=== PATIENT | male | born 1945 | race Caucasian/White ===

== ENCOUNTER 2017-08-05 17:29 | Observation (INO) | payer MEDICARE, OTHER ==
[~2017-08-05] VITALS: Ht 177.8 cm; Wt 92.9 kg
[2017-08-05 17:32] VITALS: BP 168/88; PULSE 50; RESP 14; TEMP 98.6; O2SAT 98
[2017-08-05 18:00] VITALS: BP 194/92; PULSE 50; RESP 18; O2SAT 96
[2017-08-05 18:08] VITALS: O2SAT 97
[2017-08-05] MEDS ORDERED: ATEN25TA PO (18:11)
[2017-08-05] MEDS ORDERED: FOLI400T PO (18:12)
[2017-08-05] MEDS ORDERED: MECL-62 PO (18:12)
[2017-08-05] MEDS ORDERED: VITA100T54 PO (18:12)
[2017-08-05] MEDS ORDERED: PRAV40TA2 PO (18:12)
[2017-08-05] MEDS ORDERED: SODIUM CHLORIDE 0.9% FLUSH 10 ML FLUSH IVF PRN (18:15)
--- NOTE | 2017-08-05 18:26 | RADRPT ---
EXAM DATE/TIME: 08/05/2017 18:07 [facility] COMPARISON: No previous studies available for comparison. INDICATIONS : Short of breath MEDICAL HISTORY : Cardiovascular disease. SURGICAL HISTORY : None. ENCOUNTER: Initial ACUITY: 1 day PAIN SCORE: 0/10 LOCATION: chest FINDINGS: A single view of the chest demonstrates linear atelectasis or scarring in the left base. Nodular dens ity laterally in the right base may represent a nipple shadow. Lungs are otherwise clear. Heart size is upper limits of normal. Dextroscoliosis of the dorsal spine with associated degenerative changes. Age-indeterminate displaced fracture through the lateral aspect of a lower left rib. CONCLUSION: 1. Linear atelectasis/scarring in the left lower lobe. 2. Age-indeterminate fracture through the lateral aspect of a left lower rib. 3. Nodular density laterally in the right base is nonspecific and may represent a nipple shadow. Antonino Turner MD on August 05, 2017 at 18:20 Board Certified Radiologist. This report was verified electronically.
--- NOTE | 2017-08-05 18:52 | PD ---
HPI Chief Complaint: Neuro Symptoms/ Deficits Time Seen by Provider: 17:58 Travel History International Travel<30 days: No Contact w/Intl Traveler<30days: No Traveled to known affect area: No History of Present Illness HPI 72-year-old male came to the emergency room with history of left upper extremity tingling and numbness. Patient drove himself in. He says that at 3: 30 [place] his neck and all of a sudden got a sharp pain followed by tingling and numbness of his left upper extremity. 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 However the tingling and numbness is new. Patient says he is from [place] and moved down here to live here. He does not have a primary care physician. His blood pressure was elevated and 190s when he arrived. Patient denies of any headache or chest pain. No history of syncopal episode. [facility] Past Medical History Narrative Medical List of his past medical, surgical, social and family history is reviewed from the nursing note. Cardiovascular Problems: Yes (HTN) High Cholesterol: Yes Diminished Hearing: No Hypertension: Yes Medical other: Yes (polio) Influenza Vaccination: Yes Past Surgical History Oral Surgery: Yes (wisdom teeth extraction) Tonsillectomy: Yes Family History Family Myocardial Infarction: Yes (father) Social History Alcohol Use: No Tobacco Use: No Substance Use: No Allergies-Medications (Allergen,Severity, Reaction): Coded Allergies: No Known Allergies (Unverified , 08/05/17) Comments No known drug allergies. Reported Meds & Prescriptions Reported Meds & Active Scripts Active Reported Vitamin B-1 (Thiamine HCl) 100 Mg Tab 100 Mg PO DAILY Folic Acid 0.4 Mg Tab 400 Mcg PO DAILY Pravastatin 40 Mg Tab 40 Mg PO DAILY Meclizine (Meclizine HCl) 25 Mg Tab 25 Mg PO DIRECTED PRN Narrative Medication List of his home medications reviewed from the nursing note. Review of Systems Except as stated in HPI: all other systems reviewed are Neg Neurologic: Positive: Paresthesia Physical Exam Narrative GENERAL: Awake, alert, anxious SKIN: Focused skin assessment warm/dry. HEAD: Atraumatic. Normocephalic. EYES: Pupils equal and round. No scleral icterus. No injection or drainage. ENT: No nasal bleeding or discharge. Mucous membranes pink and moist. NECK: Trachea midline. No JVD. CARDIOVASCULAR: Regular rate and rhythm. No murmur appreciated. RESPIRATORY: No accessory muscle use. Clear to auscultation. Breath sounds equal bilaterally. GASTROINTESTINAL: Abdomen soft, non-tender, nondistended. Hepatic and splenic margins not palpable. MUSCULOSKELETAL: No obvious deformities. No clubbing. No cyanosis. No edema. NEUROLOGICAL: Awake and alert. No obvious cranial nerve deficits. Motor grossly within normal limits. Normal speech. NIH stroke score 0 PSYCHIATRIC: Appropriate mood and affect; insight and judgment normal. Data Data Last Documented VS Orders Orders Electrocardiogram (08/05/17 18:05) Prothrombin Time / Inr (Pt) (08/05/17 18:05) Complete Blood Count With Diff (08/05/17 18:) Basic Metabolic Panel (Bmp) (08/05/17 18:05) Creatine Kinase (Cpk) (08/05/17 18:05) Troponin I (08/05/17 18:05) Urinalysis - C+S If Indicated (08/05/17 18:05) Ct Brain W/O Iv Contrast(Rout) (08/05/17 18:05) Chest, Single Ap (08/05/17 18:05) Ecg Monitoring (08/05/17 18:05) Iv Access Insert/Monitor (08/05/17 18:05) Oximetry (08/05/17 18:05) Sodium Chloride 0.9% Flush (Ns Flush) (08/05/17 18:15) Aspirin (Aspirin) (08/05/17 20:15) [place] (08/05/17 20:03) Sodium Chlor 0.9% 1000 Ml Inj (Ns 1000 M (08/05/17 20:15) Admit Order (Ed Use Only) (08/05/17 21:19) Place In Observation (08/05/17 ) Vital Signs (Adult) EBONIE.Q4H (08/05/17 21:18) Neuro Checks . ORDERED (08/05/17 21:18) Activity Oob With Assistance (08/05/17 21:18) Sodium Chloride 0.9% Flush (Ns Flush) (08/05/17 21:30) Sodium Chloride 0.9% Flush (Ns Flush) (08/06/17 09:00) Labs Laboratory Tests Test 08/05/17 18:08 08/05/17 18:45 White Blood Count 6.3 TH/MM3 Red Blood Count 5.17 MIL/MM3 Hemoglobin 15.8 GM/DL Hematocrit 46.8 % Mean Corpuscular Volume 90.6 FL Mean Corpuscular Hemoglobin 30.6 PG Mean Corpuscular Hemoglobin Concent 33.8 % Red Cell Distribution Width 13.5 % Platelet Count 182 TH/MM3 Mean Platelet Volume 10.2 FL Neutrophils (%) (Auto) 60.3 % Lymphocytes (%) (Auto) 26.3 % Monocytes (%) (Auto) 9.0 % Eosinophils (%) (Auto) 3.6 % Basophils (%) (Auto) 0.8 % Neutrophils # (Auto) 3.8 TH/MM3 Lymphocytes # (Auto) 1.7 TH/MM3 Monocytes # (Auto) 0.6 TH/MM3 Eosinophils # (Auto) 0.2 TH/MM3 Basophils # (Auto) 0.1 TH/MM3 CBC Comment DIFF FINAL Differential Comment Prothrombin Time 10.6 SEC Prothromb Time International Ratio 1.0 RATIO Blood Urea Nitrogen 11 MG/DL Creatinine 0.79 MG/DL Random Glucose 105 MG/DL Calcium Level 9.8 MG/DL Sodium Level 140 MEQ/L Potassium Level 3.6 MEQ/L Chloride Level 104 MEQ/L Carbon Dioxide Level 26.8 MEQ/L Anion Gap 9 MEQ/L Estimat Glomerular Filtration Rate 97 ML/MIN Total Creatine Kinase 115 U/L Troponin I 0.05 NG/ML Urine Color YELLOW Urine Turbidity CLEAR Urine pH 5.5 Urine Specific [place] 1.031 Urine Protein TRACE mg/dL Urine Glucose (UA) NEG mg/dL Urine Ketones NEG mg/dL Urine Occult Blood NEG Urine Nitrite NEG Urine Bilirubin NEG Urine Urobilinogen LESS THAN 2.0 MG/DL Urine Leukocyte Esterase TRACE Urine RBC LESS THAN 1 /hpf Urine WBC 1 /hpf Urine Calcium Oxalate Crystals OCC /hpf Urine Mucus FEW /lpf Microscopic Urinalysis Comment CATH-CULT NOT IND MDM Medical Decision Making Medical Screen Exam Complete: Yes Emergency Medical Condition: Yes Medical Record Reviewed: Yes Interpretation(s) Twelve-lead EKG was reviewed by me. Normal sinus rhythm, left axis deviation, bradycardia, old inferior NM, first-degree AV block, nonspecific ST-T wave changes.. Heart rate of 46 bpm. Differential Diagnosis TIA, cervical spinal stenosis, bradycardia Narrative Course 6:51 PM awaiting for the CAT scan and the blood test result. Case will be signed over to the oncoming ER physician. Procedures EKG Prior to Arrival: No Scripts Amlodipine (Norvasc) 5 Mg Tab 5 MG PO DAILY, #30 TAB Prov: Henna Abraham MD R2 08/09/17 Metoprolol Tartrate (Metoprolol Tartrate) 25 Mg Tab 25 MG PO Q12HR, #60 TAB Prov: Henna Abraham MD R2 08/09/17 Sam Castorena MD Aug 05, 2017 18:52
[2017-08-05 19:02] VITALS: BP 142/78; PULSE 45; RESP 18; O2SAT 95
--- NOTE | 2017-08-05 19:07 | RADRPT ---
EXAM DATE/TIME: 08/05/2017 18:42 [facility] COMPARISON: No previous studies available for comparison. INDICATIONS : Syncope with left sided arm, facial and leg numbness. RADIATION DOSE: 56.35 CTDIvol (mGy) MEDICAL HISTORY : Hypertension. SURGICAL HISTORY : None. ENCOUNTER: Initial ACUITY: 1 day PAIN SCALE: 5/10 LOCATION: Bilateral head TECHNIQUE: Multiple contiguous axial images were obtained of the head. Using automated exposure control and adj ustment of the mA and/or kV according to patient size, radiation dose was kept as low as reasonably a chievable to obtain optimal diagnostic quality images. DICOM format image data is available electro nically for review and comparison. FINDINGS: CEREBRUM: The ventricles are normal. No evidence of midline shift, mass lesion, hemorrhage or acute infarction . No extra-axial fluid collections are seen. POSTERIOR FOSSA: The cerebellum and brainstem are intact. The 4th ventricle is midline. The cerebellopontine angle i s unremarkable. EXTRACRANIAL: The visualized portion of the orbits is intact. SKULL: The calvaria is intact. No evidence of skull fracture. CONCLUSION: No acute intracranial abnormality is identified. Carroll Iverson MD on August 05, 2017 at 19:03 Board Certified Radiologist. This report was verified electronically.
[2017-08-05 19:10] LABS: AUTOMATED NEUTROPHIL # 3.8 TH/MM3 (1.8-7.7); BASOPHIL # 0.1 TH/MM3 (0-0.2); BASOPHIL % 0.8 % (0.0-2.0); EOSINOPHIL # 0.2 TH/MM3 (0-0.4); EOSINOPHIL % 3.6 % (0.0-4.0); HEMATOCRIT 46.8 % (39.0-51.0); HEMO FLAGS DIFF FINAL; LYMPH % 26.3 % (9.0-44.0); LYMPHOCYTE # 1.7 TH/MM3 (1.0-4.8); MEAN CELL VOLUME 90.6 FL (80.0-100.0); MEAN CORPUSCULAR HEMOGLOBIN 30.6 PG (27.0-34.0); MEAN CORPUSCULAR HGB CONC 33.8 % (32.0-36.0); NEUT % 60.3 % (16.0-70.0); PLATELET COUNT 182 TH/MM3 (150-450); RED BLOOD COUNT 5.17 MIL/MM3 (4.50-5.90); RED CELL DISTRIBUTION WIDTH 13.5 % (11.6-17.2); WHITE BLOOD COUNT 6.3 TH/MM3 (4.0-11.0)
[2017-08-05 19:10] LABS: BLOOD, URINE NEG (NEG); CALCIUM OXALATE CRYSTALS,URINE OCC /hpf; COMMENT (UR) CATH-CULT NOT IND; CULTURE IF INDICATED CATH CULTURE NOT IND; GLUCOSE,URINE NEG (NEG); KETONE, URINE NEG (NEG); MUCUS URINE FEW /lpf (OCC); NITRITE,URINE NEG (NEG); PH, URINE 5.5 (5.0-8.5); URINE COLOR YELLOW (YELLW/STRAW)
[2017-08-05 19:15] LABS: PROTHROMBIN TIME - PATIENT 10.6 SEC (9.8-11.6)
[2017-08-05 19:18] LABS: BICARBONATE 26.8 MEQ/L (21.0-32.0); POTASSIUM 3.6 MEQ/L (3.5-5.1)
--- NOTE | 2017-08-05 19:55 | PD ---
Data Data Last Documented VS Vital Signs Date Time Temp Pulse Resp B/P (MAP) Pulse Ox O2 Delivery O2 Flow Rate FiO2 08/05/17 20:27 45 18 160/79 (106) 96 Room Air 08/05/17 17:32 98.6 Orders Orders Electrocardiogram (08/05/17 18:05) Prothrombin Time / Inr (Pt) (08/05/17 18:05) Complete Blood Count With Diff (08/05/17 18:05) Basic Metabolic Panel (Bmp) (08/05/17 18:05) Creatine Kinase (Cpk) (08/05/17 18:05) Troponin I (08/05/17 18:05) Urinalysis - C+S If Indicated (08/05/17 18:05) Ct Brain W/O Iv Contrast(Rout) (08/05/17 18:05) Chest, Single Ap (08/05/17 18:05) Ecg Monitoring (08/05/17 18:05) Iv Access Insert/Monitor (08/05/17 18:05) Oximetry (08/05/17 18:05) Sodium Chloride 0.9% Flush (Ns Flush) (08/05/17 18:15) Aspirin (Aspirin) (08/05/17 20:15) [place] (08/05/17 20:03) Sodium Chlor 0.9% 1000 Ml Inj (Ns 1000 M (08/05/17 20:15) Admit Order (Ed Use Only) (08/05/17 21:19) Place In Observation (08/05/17 ) Vital Signs (Adult) EBONIE.Q4H (08/05/17 21:18) Neuro Checks . ORDERED (08/05/17 21:18) Activity Oob With Assistance (08/05/17 21:18) Sodium Chloride 0.9% Flush (Ns Flush) (08/05/17 21:30) Sodium Chloride 0.9% Flush (Ns Flush) (08/06/17 09:00) Labs Laboratory Tests Test 08/05/17 18:08 08/05/17 18:45 White Blood Count 6.3 TH/MM3 Red Blood Count 5.17 MIL/MM3 Hemoglobin 15.8 GM/DL Hematocrit 46.8 % Mean Corpuscular Volume 90.6 FL Mean Corpuscular Hemoglobin 30.6 PG Mean Corpuscular Hemoglobin Concent 33.8 % Red Cell Distribution Width 13.5 % Platelet Count 182 TH/MM3 Mean Platelet Volume 10.2 FL Neutrophils (%) (Auto) 60.3 % Lymphocytes (%) (Auto) 26.3 % Monocytes (%) (Auto) 9.0 % Eosinophils (%) (Auto) 3.6 % Basophils (%) (Auto) 0.8 % Neutrophils # (Auto) 3.8 TH/MM3 Lymphocytes # (Auto) 1.7 TH/MM3 Monocytes # (Auto) 0.6 TH/MM3 Eosinophils # (Auto) 0.2 TH/MM3 Basophils # (Auto) 0.1 TH/MM3 CBC Comment DIFF FINAL Differential Comment Prothrombin Time 10.6 SEC Prothromb Time International Ratio 1.0 RATIO Blood Urea Nitrogen 11 MG/DL Creatinine 0.79 MG/DL Random Glucose 105 MG/DL Calcium Level 9.8 MG/DL Sodium Level 140 MEQ/L Potassium Level 3.6 MEQ/L Chloride Level 104 MEQ/L Carbon Dioxide Level 26.8 MEQ/L Anion Gap 9 MEQ/L Estimat Glomerular Filtration Rate 97 ML/MIN Total Creatine Kinase 115 U/L Troponin I 0.05 NG/ML Urine Color YELLOW Urine Turbidity CLEAR Urine pH 5.5 Urine Specific [place] 1.031 Urine Protein TRACE mg/dL Urine Glucose (UA) NEG mg/dL Urine Ketones NEG mg/dL Urine Occult Blood NEG Urine Nitrite NEG Urine Bilirubin NEG Urine Urobilinogen LESS THAN 2.0 MG/DL Urine Leukocyte Esterase TRACE Urine RBC LESS THAN 1 /hpf Urine WBC 1 /hpf Urine Calcium Oxalate Crystals OCC /hpf Urine Mucus FEW /lpf Microscopic Urinalysis Comment CATH-CULT NOT IND MDM Medical Record Reviewed: Yes Supervised Visit with ADRIANNE: No Interpretation(s) Last Impressions Head CT 08/05/[id number] Signed Impressions: Service Date/Time: Saturday, August 05, 2017 18:42 - CONCLUSION: No acute intracranial abnormality is identified. Carroll Iverson MD Chest X-Ray [id number]/05/[id number] Signed Impressions: Service Date/Time: Saturday, August 05, 2017 18:07 - CONCLUSION: 1. Linear atelectasis/scarring in the left lower lobe. 2. Age-indeterminate fracture through the lateral aspect of a left lower rib. 3. Nodular density laterally in the right base is nonspecific and may represent a nipple shadow. Antonino Turner MD Narrative Course During the course of the patients emergency department visit, the patients history, examination, and differential diagnosis were reviewed with the patient. The patient was placed on a potline monitor with oximetry and frequent blood pressure monitoring. The patient had IV access obtained and blood work sent for analysis. The patient's case was checked out to me by Dr. Castorena. Please see her initial complete history and physical. The patient's case was checked out to me at the conclusion of her shift. The patients laboratory studies were reviewed and remarkable for a white count of 6.3, hemoglobin 15.8, platelets 182 with 9 monocytes, basic metabolic profile is unremarkable, CPK 1:15, troponin I 0.05, PT 10.6, INR 1. urinalysis shows trace leukocyte Estrace 1 WBCs occasional calcium oxalate crystals, culture not indicated per Radiology studies were reviewed and remarkable for a chest x-ray that shows linear atelectasis/scarring in the left lower lobe, age indeterminate fracture through the lateral aspect of the left lower rib. Nodular density laterally in the right base is nonspecific and may represent a nipple shadow. CT scan of the brain shows no acute intracranial abnormality. The patients results were discussed with the patient, including the plan of care. I explained that further testing and/ or monitoring is indicated based on the patients history, examination, and/ or laboratory findings. Therefore, I recommended admission for additional evaluation. The patient expressed understanding and was agreeable with this plan. The patient was admitted to the hospital in stable condition and sent to a bed under the care of the [facility] residency service. Physician Communication Physician Communication The patient's case including history, pertinent physical examination findings, and laboratory studies were discussed with the family practice residents. It was agreed that the patient would be admitted to the [facility] residency service. Diagnosis Primary Impression: Multiple neurological symptoms Admitting Information Admitting Physician Requests: Observation Stephany Shepard MD Aug 05, 2017 19:55
[2017-08-05] MEDS ORDERED: ASPIRIN 325 MG TAB PO ONE (20:15)
[2017-08-05] MEDS: SODIUM CHLOR 0.9% 1000 ML INJ 1,000 ML IV SCH (20:26)
[2017-08-05 20:27] VITALS: BP 160/79; PULSE 45; RESP 18; O2SAT 96
[2017-08-05] MEDS ORDERED: SODIUM CHLORIDE 0.9% FLUSH 10 ML FLUSH IV FLUSH PRN (21:30)
--- NOTE | 2017-08-05 21:52 | HHI.HP ---
HPI Service Family Medicine Primary Care Physician Unknown Admission Diagnosis Neurologic symptoms Diagnoses: International Travel<30 Days: No Contact w/Intl Traveler<30days: No Known Affected Area: No History of Present Illness Mr. Jeter is a 72yo WM with a PMH of post-polio syndrome presenting to the ED with transient left-sided numbness. He states that he arrived in [place] today after driving from [place] 2 days ago with a stop in [place], for his mother's on yesterday. He subsequently drove to the [place] and sat in his car. He turned his head sharply and felt an immediate pain in his neck. He described the pain as a 5 out of 10, feeling like a "pinched nerve" in the left side of his neck with no radiation, nothing made it worse, felt better with time. He said after the pain in his neck started his whole left side went numb. Eventually the feeling came back in his left leg, but he still feels sore in his left arm with some residual weakness that is greater than his baseline weakness. He remembers feeling tired during this episode which lasted for 45 minutes[address] He [address] to the hospital once it was over. He has a history of polio when he was younger. It affected his muscles in his left arm and right leg which causes weakness. He was diagnosed with post polio syndrome 2 years ago. He states that he feels numbness sometimes, but not always. No tingling. States that he has never experienced anything like this before. Review of Systems Constitutional: COMPLAINS OF: Dizziness, DENIES: Diaphoretic episodes, Fever, Chills Eyes: DENIES: Blurred vision, Double Vision Ears, nose, mouth, throat: COMPLAINS OF: Running Nose, DENIES: Tinnitus, Hearing loss, Vertigo Respiratory: COMPLAINS OF: Shortness of breath, DENIES: Cough Cardiovascular: DENIES: Chest pain, Palpitations, Syncope, Lower Extremity Edema Gastrointestinal: DENIES: Abdominal pain, Black stools, Bloody stools, Constipation, Diarrhea, Nausea, Vomiting Genitourinary: DENIES: Urinary frequency, Urinary incontinence Musculoskeletal: COMPLAINS OF: Stiffness, Back pain (sore), Neck pain Integumentary: DENIES: Rash Neurologic: DENIES: Headache, Paresthesias, Seizures, Tremor Psychiatric: COMPLAINS OF: Anxiety (because of the episode) Past Family Social History Past Medical History Polio and post polio syndrome Vertigo in November HTN HLD Past Surgical History tonsillectomy upper teeth extraction Reported Medications Reported Meds & Active Scripts Active Reported Vitamin B-1 (Thiamine HCl) 100 Mg Tab 100 Mg PO DAILY Folic Acid 0.4 Mg Tab 400 Mcg PO DAILY Pravastatin 40 Mg Tab 40 Mg PO DAILY Meclizine (Meclizine HCl) 25 Mg Tab 25 Mg PO DIRECTED PRN Atenolol 25 Mg Tab 25 Mg PO DAILY Allergies: Coded Allergies: No Known Allergies (Unverified , 08/05/17) Family History Father- prostate ca Mother- healthy, recently passed at 96 Social History Lives in [place], here 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 Love Alcohol- 2x/week- beer or wine, never withdrawn Cigarettes- quit 10 yrs, 1/2 pack a week for 20 yrs Illicit drugs- none Physical Exam Vital Signs Vital Signs Date Time Temp Pulse Resp B/P (MAP) Pulse Ox O2 Delivery O2 Flow Rate FiO2 08/05/17 20:27 45 18 160/79 (106) 96 Room Air 08/05/17 19:02 45 18 142/78 (99) 95 Room Air 08/05/17 18:08 97 08/05/17 18:00 50 18 194/92 (126) 96 Room Air 08/05/17 17:32 98.6 50 14 168/88 (114) 98 Physical Exam GENERAL: This is a well-nourished, well-developed patient, laying in bed, in no apparent distress. Upper lip fasciculations SKIN: No rashes, ecchymoses or lesions. Cool and dry. HEAD: Atraumatic. Normocephalic. EYES: Pupils equal round and reactive. Extraocular motions intact. No scleral icterus. No injection or drainage. ENT: Nose without bleeding, purulent drainage or septal hematoma. Throat without erythema, tonsillar hypertrophy or exudate. Uvula midline. Airway patent. NECK: Trachea midline. No JVD or lymphadenopathy. Supple, nontender, no meningeal signs. CARDIOVASCULAR: Regular rate and rhythm without murmurs, gallops, or rubs. RESPIRATORY: Clear to auscultation. Breath sounds equal bilaterally. No wheezes , rales, or rhonchi. GASTROINTESTINAL: Abdomen soft, epigastric and LUQ tenderness, nondistended. No hepato-splenomegaly, or palpable masses. No guarding. MUSCULOSKELETAL: Extremities without clubbing, cyanosis, or edema. No joint tenderness, effusion, or edema noted. No calf tenderness. Negative Homans sign bilaterally. Right leg externally rotated. Limited ROM of left arm. NEUROLOGICAL: Awake and alert. Cranial nerves II through XII intact. Motor and sensory grossly within normal limits. Five out of 5 muscle strength in RU and LL extremities. Strength 3/5 in left upper extremity and 1/5 in right lower extremity; however, able to dorsi and plantar flex foot with 5/5 strength in right leg. Random twitches of right foot. Normal speech. Laboratory Laboratory Tests Test 08/05/17 18:08 08/05/17 18:45 White Blood Count 6.3 Red Blood Count 5.17 Hemoglobin 15.8 Hematocrit 46.8 Mean Corpuscular Volume 90.6 Mean Corpuscular Hemoglobin 30.6 Mean Corpuscular Hemoglobin Concent 33.8 Red Cell Distribution Width 13.5 Platelet Count 182 Mean Platelet Volume 10.2 Neutrophils (%) (Auto) 60.3 Lymphocytes (%) (Auto) 26.3 Monocytes (%) (Auto) 9.0 Eosinophils (%) (Auto) 3.6 Basophils (%) (Auto) 0.8 Neutrophils # (Auto) 3.8 Lymphocytes # (Auto) 1.7 Monocytes # (Auto) 0.6 Eosinophils # (Auto) 0.2 Basophils # (Auto) 0.1 CBC Comment DIFF FINAL Differential Comment Prothrombin Time 10.6 Prothromb Time International Ratio 1.0 Blood Urea Nitrogen 11 Creatinine 0.79 Random Glucose 105 Calcium Level 9.8 Sodium Level 140 Potassium Level 3.6 Chloride Level 104 Carbon Dioxide Level 26.8 Anion Gap 9 Estimat Glomerular Filtration Rate 97 Total Creatine Kinase 115 Troponin I 0.05 Urine Color YELLOW Urine Turbidity CLEAR Urine pH 5.5 Urine Specific [place] 1.031 Urine Protein TRACE Urine Glucose (UA) NEG Urine Ketones NEG Urine Occult Blood NEG Urine Nitrite NEG Urine Bilirubin NEG Urine Urobilinogen LESS THAN 2.0 Urine Leukocyte Esterase TRACE Urine RBC LESS THAN 1 Urine WBC 1 Urine Calcium Oxalate Crystals OCC Urine Mucus FEW Microscopic Urinalysis Comment CATH-CULT NOT IND Result Diagram: 08/05/17180708/05/171807 Imaging Last Impressions Head CT 08/05/171804 Signed Impressions: Service Date/Time: Saturday, August 05, 2017 18:42 - CONCLUSION: No acute intracranial abnormality is identified. Carroll Iverson MD Chest X-Ray 08/05/171804 Signed Impressions: Service Date/Time: Saturday, August 05, 2017 18:07 - CONCLUSION: 1. Linear atelectasis/scarring in the left lower lobe. 2. Age-indeterminate fracture through the lateral aspect of a left lower rib. 3. Nodular density laterally in the right base is nonspecific and may represent a nipple shadow. MD Jai Alva VTE Risk Assessment Caprini VTE Risk Assessment: Mod/High Risk (score >= 2) Caprini Risk Assessment Model Point Value = 1 Point Value = 2 Point Value = 3 Point Value = 5 Age 41-60 Minor surgery BMI > 25 kg/m2 Swollen legs Varicose veins or History of unexplained or recurrent spontaneous Oral contraceptives or hormone replacement Sepsis (< 1 month) Serious lung disease, including pneumonia (< 1 month) Abnormal pulmonary function Acute myocardial infarction Congestive heart failure (< 1 month) History of inflammatory bowel disease Medical patient at bed rest Age 61-74 Arthroscopic surgery Major open surgery (> 45 min) Laparoscopic surgery (> 45 min) Malignancy Confined to bed (> 72 hours) Immobilizing plaster cast Central venous access Age >= 75 History of VTE Family history of VTE Factor V Leiden Prothrombin [id number] Lupus anticoagulant Anticardiolipin antibodies Elevated serum homocysteine Heparin-induced thrombocytopenia Other congenital or acquired thrombophilia Stroke (< 1 month) Elective arthroplasty Hip, pelvis, or leg fracture Acute spinal cord injury (< 1 month) Prophylaxis Regimen Total Risk Factor Score Risk Level Prophylaxis Regimen 0-1 Low Early ambulation 2 Moderate Order ONE of the following: *Sequential Compression Device (SCD) *Heparin 5000 units SQ BID 3-4 Higher Order ONE of the following medications: *Heparin 5000 units SQ TID *Enoxaparin/Lovenox 40 mg SQ daily (WT < 150 kg, CrCl > 30 mL/min) *Enoxaparin/Lovenox 30 mg SQ daily (WT < 150 kg, CrCl > 10-29 mL/min) *Enoxaparin/Lovenox 30 mg SQ BID (WT < 150 kg, CrCl > 30 mL/min) AND/OR *Sequential Compression Device (SCD) 5 or more Highest Order ONE of the following medications: *Heparin 5000 units SQ TID (Preferred with Epidurals) *Enoxaparin/Lovenox 40 mg SQ daily (WT < 150 kg, CrCl > 30 mL/min) *Enoxaparin/Lovenox 30 mg SQ daily (WT < 150 kg, CrCl > 10-29 mL/min) *Enoxaparin/Lovenox 30 mg SQ BID (WT < 150 kg, CrCl > 30 mL/min) AND *Sequential Compression Device (SCD) Assessment and Plan Assessment and Plan Mr. Jeter is a 72yo WM with a PMH of post-polio syndrome presenting to the ED with transient left-sided numbness and residual left arm weakness. He is being admitted to observation. Code Status Full code Discussed Condition With Dr. Jeff Caro Problem List: (1) Left arm weakness ICD Codes: R29.898 - Other symptoms and signs involving the musculoskeletal system Status: Acute Plan: Pt states that his left arm weakness is greater than baseline. Since the sx originated from neck pain likely due to a cervical origin. Cervical stenosis vs worsening post-polio syndrome vs TIA * ASA 325 mg given in ED * Head CT w/o showed no acute intracranial abnormality * Brain MRI w/o contrast ordered * Cervical MRI w/o contrast ordered * Neuro checks * HOB flat (2) Post-polio syndrome ICD Codes: G14 - Postpolio syndrome Status: Chronic Plan: Has chronic weakness in left arm and right leg. (3) Hypertension ICD Codes: I10 - Essential (primary) hypertension Status: Chronic Plan: * HELD at home medication of Atenolol 25mg po qD to allow for permissive HTN (4) Hyperlipemia ICD Codes: E78.5 - Hyperlipidemia, unspecified Status: Chronic Plan: * Continue at home medication of Pravastatin 40mg po qD (5) FEN Status: Acute Plan: Fluids: tolerating PO Electrolytes: monitor and replete as needed Nutrition: heart-healthy diet DVT Prophylaxis: Early ambulation. Lovenox 40mg subQ q24hr GI Prophylaxis: not indicated at this time Problem Qualifiers (1) Hypertension: Qualified Codes: I10 - Essential (primary) hypertension Leslie Choi MD R1 Aug 05, 2017 21:52
[2017-08-05] MEDS ORDERED: ONDANSETRON HCL 4 MG/2 ML VIAL IVP PRN (22:45)
[2017-08-05] MEDS ORDERED: ACETAMINOPHEN/HYDROcodone 325 MG/7.5 MG TAB PO PRN (22:45)
[2017-08-05] MEDS ORDERED: MORPHINE SULFATE 4 MG/ML INJ IV PUSH PRN (22:45)
[2017-08-05] MEDS ORDERED: ACETAMINOPHEN 325 MG TAB PO PRN (22:45)
[2017-08-05] MEDS ORDERED: BISACODYL 10 MG SUPP RECTAL PRN (22:45)
[2017-08-05] MEDS ORDERED: SENNOSIDES 8.6 MG TAB PO PRN (22:45)
[2017-08-05] MEDS ORDERED: MECLIZINE HCL 25 MG TAB PO PRN (22:45)
[2017-08-05] MEDS ORDERED: MAGNESIUM HYDROXIDE SUSP 30 ML CUP PO PRN (22:45)
[2017-08-05] MEDS ORDERED: ACETAMINOPHEN/HYDROcodone 325 MG/5 MG TAB PO PRN (22:45)
[2017-08-05] MEDS ORDERED: LACTULOSE SYRUP 20 GM/30 ML CUP PO PRN (22:45)
[2017-08-05] MEDS ORDERED: NALOXONE HCL 0.4 MG/ML AMP IV PUSH PRN (22:45)
[2017-08-05 23:18] VITALS: BP 165/77; PULSE 45; PULSE 48; RESP 15; RESP 18; O2SAT 100; O2SAT 98
[2017-08-06] VITALS (12 sets, daily range): BP systolic 138–162; BP diastolic 74–87; PULSE 40–49; RESP 16–21; TEMP 97.6–98.5; O2SAT 94–97
[2017-08-06 06:02] LABS: AUTOMATED NEUTROPHIL # 2.2 TH/MM3 (1.8-7.7); BASOPHIL % 0.7 % (0.0-2.0); EOSINOPHIL # 0.2 TH/MM3 (0-0.4); EOSINOPHIL % 4.7 % (0.0-4.0); HEMATOCRIT 43.7 % (39.0-51.0); HEMO FLAGS DIFF FINAL; LYMPH % 36.1 % (9.0-44.0); LYMPHOCYTE # 1.7 TH/MM3 (1.0-4.8); MEAN CELL VOLUME 90.7 FL (80.0-100.0); MEAN CORPUSCULAR HEMOGLOBIN 30.5 PG (27.0-34.0); MEAN CORPUSCULAR HGB CONC 33.6 % (32.0-36.0); MONO % 10.7 % (0.0-8.0); NEUT % 47.8 % (16.0-70.0); PLATELET COUNT 149 TH/MM3 (150-450); RED BLOOD COUNT 4.82 MIL/MM3 (4.50-5.90); RED CELL DISTRIBUTION WIDTH 13.5 % (11.6-17.2); WHITE BLOOD COUNT 4.7 TH/MM3 (4.0-11.0)
[2017-08-06 06:32] LABS: ALKALINE PHOSPHATASE 83 U/L (45-117); ALT (GPT) 24 U/L (12-78); ANION GAP 9 MEQ/L (5-15); AST (GOT) 18 U/L (15-37); BLOOD UREA NITROGEN 8 MG/DL (7-18); CHLORIDE 105 MEQ/L (98-107); GLOMERULAR FILTRATION RATE 126 ML/MIN (>89); POTASSIUM 3.6 MEQ/L (3.5-5.1); SODIUM (NA) 140 MEQ/L (136-145); TOTAL BILIRUBIN ADULT 0.6 MG/DL (0.2-1.0)
[2017-08-06] MEDS ORDERED: ATENOLOL 25 MG TAB PO SCH (09:00)
[2017-08-06] MEDS: PRAVASTATIN SOD 40 MG TAB PO SCH (09:05)
[2017-08-06] MEDS: SODIUM CHLORIDE 0.9% FLUSH 10 ML FLUSH IV FLUSH SCH ×2 (09:05→21:00)
[2017-08-06] MEDS: ENOXAPARIN SODIUM 40 MG/0.4 ML SYRINGE SQ SCH (09:05)
[2017-08-06] MEDS: DOCUSATE SODIUM 50 MG/SENNA 8.6 MG TAB PO SCH ×2 (09:06→21:34)
[2017-08-06] MEDS: SODIUM CHLOR 0.9% 1000 ML INJ 1,000 ML IV SCH (09:06)
--- NOTE | 2017-08-06 10:22 | RADRPT ---
EXAM DATE/TIME: 08/06/2017 09:32 [facility] COMPARISON: No previous studies available for comparison. INDICATIONS : Left sided numbness. MEDICAL HISTORY : Hypertension. Hypercholesterolemia. SURGICAL HISTORY : [place] teeth extaction. ENCOUNTER: Initial ACUITY: 1 day PAIN SCORE: 0/10 LOCATION: head TECHNIQUE: Multiplanar, multisequence MRI of the brain was performed without contrast. FINDINGS: CEREBRUM: The ventricles are normal for age. No evidence of midline shift, mass lesion, hemorrhage or acute in farction. No extraaxial fluid collections are seen. The pituitary gland and suprasellar cistern are normal in configuration. WHITE MATTER: Scattered punctate areas of white matter T2 prolongation which is likely microvascular ischemic in et iology. POSTERIOR FOSSA: The cerebellum and brainstem are intact. The 4th ventricle is midline. The cerebellopontine angle is unremarkable. The cerebellar tonsils are normal in position. DIFFUSION IMAGING: No focal areas of restricted diffusion are seen. No evidence of acute infarction. EXTRACRANIAL: The visualized portions of the orbits and paranasal sinuses are unremarkable. CONCLUSION: Mild benign-appearing white matter disease. No acute findings Carroll Jimenez MD on August 06, 2017 at 10:18 Board Certified Radiologist. This report was verified electronically.
--- NOTE | 2017-08-06 12:00 | RADRPT ---
EXAM DATE/TIME: 08/06/2017 09:32 [facility] COMPARISON: No previous studies available for comparison. INDICATIONS : Left sided numbness. MEDICAL HISTORY : Hypertension. Hypercholesterolemia. SURGICAL HISTORY : [place] teeth. ENCOUNTER: Initial ACUITY: 2 day PAIN SCORE: 4/10 LOCATION: neck TECHNIQUE: Multiplanar, multisequence MRI examination of the cervical spine was performed. FINDINGS: VERTEBRAE: Normal vertebral body height. Homogeneous marrow signal. There are primary bony degenerative changes of the cervical spine. There is disc dehydration at all levels along with disc space narrowing. No c ompression fractures are demonstrated. No definite bone marrow edema is demonstrated. ALIGNMENT: No evidence of subluxation. CORD: Normal configuration and signal. POST FOSSA: The cerebellar tonsils are normal in position. C2-C3: The thecal sac has a normal configuration. There is no evidence of disc herniation or spinal canal s tenosis. The neural foramina are patent bilaterally. C3-C4: Mild to moderate Central bulging. The neural foramina are patent. C4-C5: Moderate diffuse broad-based bulging with disc osteophyte complex. The neural foramina appear patent. C5-C6: Mild to moderate central bulging. There is mild narrowing of the right neural foramina. The left neur al foramina appears patent. C6-C7: Diffuse broad-based bulging with disc osteophyte complex. Mild narrowing of the right neural foramina . The left neural foramina appears patent. C7-T1: Focal small central bulging. The neural foramina are patent bilaterally. CONCLUSION: 1. Primary bony degenerative changes, disc degeneration and disc space narrowing throughout the cervi [place] spine. 2. There is broad-based and central bulging bulging at multiple levels. Michael Paulino MD on August 06, 2017 at 11:55 Board Certified Radiologist. This report was verified electronically.
--- NOTE | 2017-08-06 13:09 | MB ---
cc: WILLARD ZHANG M.D. DATE OF CONSULTATION 08/06/2017 REASON FOR CONSULTATION Bradycardia HISTORY OF PRESENT ILLNESS Leno Jeter is a 72-year-old man from [place] who is here for his Mother's and got admitted. He had an episode where he turned his head to left and his left side went numb. He had some transient light headedness and then since then has been sore on the left arm. He says he has had a previous low heart rate before. His heart rate was 52 when he saw his doctor in May. He was hospitalized for vertigo in November and they held his beta cleve during his stay, but never told he could not restart it after going home. He has been on atenolol 25 mg daily. His last dose was yesterday. The faintness feeling he has had resolved. He has no anginal pain. PAST MEDICAL HISTORY Includes: 1. Hypertension 2. Hypercholesterolemia 3. Vertigo PAST SURGICAL HISTORY 1. Tonsillectomy 2. 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 He smoked a half-pack per day for 20 years, quit 10 years ago. He has about two drinks a day. FAMILY HISTORY Father of prostate cancer. Mother at age 96. REVIEW OF SYSTEMS Notable for weakness of the left arm and right lower extremity. PHYSICAL EXAM This is a well-developed, well-nourished man in no acute distress. VITAL SIGNS: Charted. Telemetry is sinus bradycardia. HEENT: Exam unremarkable. NECK: No JVD, no bruits. CHEST: Clear to auscultation. CARDIAC: S1-S2, regular rhythm, but bradycardic. No gallop. No murmur. ABDOMEN: Soft and nontender. No masses or organomegaly. EXTREMITIES: No clubbing, cyanosis or edema. EKG shows sinus bradycardia in the 40s. LABORATORY Charted. Troponins 0.05. IMPRESSION Sinus bradycardia likely due to atenolol and perhaps some mild underlying sinus node disease. RECOMMENDATIONS Discontinuation with Atenolol. Most likely he will not need a pacemaker, but we will follow his heart rate. MD JASON Florentino/SUSHANT /12:43 PM /1:04 PM
--- NOTE | 2017-08-06 14:14 | HHI.FPPN ---
Subjective Remarks Patient seen, examined and discussed with the medicine team. 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 He felt as though it was in "a pinched nerve". The pain was in the left side of his neck and did not radiate elsewhere. These symptoms resolved with rest, but recurred with left arm and leg numbness. These symptoms lasted about 45 minutes and then the numbness of the left leg resolved. His left arm remained weak and sore, similar to his postpolio weakness but worse. 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 He is visiting from the [facility], and anticipates moving here for jail. He walks with a walker, and is looking to live in assisted living. Please see history and physical examination for this admission for additional historical details including past, family, social history and review of systems at the time of admission. This morning, he reports less pain in his neck, the weakness is improved in his left arm. He forgot to bring his walker in from the car with him and would like to use a walker to ambulate well here in the hospital. He does report significant fatigue at the end of the day. He tires easily. He denies any chest pain, does get a little short of breath with exercise. Otherwise his appetite is good, no diarrhea, no nausea or vomiting, no change in his vision. Objective Vitals Vital Signs Date Time Temp Pulse Resp B/P (MAP) Pulse Ox O2 Delivery O2 Flow Rate FiO2 08/06/17 12:51 97.6 41 20 160/74 (102) 95 08/06/17 11:33 41 08/06/17 08:20 97.6 45 16 162/87 (112) 96 08/06/17 07:15 44 08/06/17 06:12 43 08/06/17 02:16 98.5 40 18 149/81 (103) 94 08/05/17 23:33 08/05/17 23:18 48 18 165/77 (106) 100 08/05/17 23:18 45 15 165/77 (106) 98 Room Air 08/05/17 20:27 45 18 160/79 (106) 96 Room Air 08/05/17 19:02 45 18 142/78 (99) 95 Room Air 08/05/17 18:08 97 08/05/17 18:00 50 18 194/92 (126) 96 Room Air 08/05/17 17:32 98.6 50 14 168/88 (114) 98 I/O 08/05/17 08/05/17 08/05/17 08/06/17 08/06/17 08/06/17 07:00 15:00 23:00 07:00 15:00 23:00 Intake Total 300 ml Output Total 100 ml Balance 200 ml Intake IV Total 300 ml Output Urine Total 100 ml # Voids 1 Result Diagram: 08/06/17 0507 08/06/17 0507 Other Results Laboratory Tests Test 08/05/17 18:08 08/05/17 18:45 08/06/17 05:07 White Blood Count 6.3 TH/MM3 4.7 TH/MM3 Red Blood Count 5.17 MIL/MM3 4.82 MIL/MM3 Hemoglobin 15.8 GM/DL 14.7 GM/DL Hematocrit 46.8 % 43.7 % Mean Corpuscular Volume 90.6 FL 90.7 FL Mean Corpuscular Hemoglobin 30.6 PG 30.5 PG Mean Corpuscular Hemoglobin Concent 33.8 % 33.6 % Red Cell Distribution Width 13.5 % 13.5 % Platelet Count 182 TH/MM3 149 TH/MM3 Mean Platelet Volume 10.2 FL 10.0 FL Neutrophils (%) (Auto) 60.3 % 47.8 % Lymphocytes (%) (Auto) 26.3 % 36.1 % Monocytes (%) (Auto) 9.0 % 10.7 % Eosinophils (%) (Auto) 3.6 % 4.7 % Basophils (%) (Auto) 0.8 % 0.7 % Neutrophils # (Auto) 3.8 TH/MM3 2.2 TH/MM3 Lymphocytes # (Auto) 1.7 TH/MM3 1.7 TH/MM3 Monocytes # (Auto) 0.6 TH/MM3 0.5 TH/MM3 Eosinophils # (Auto) 0.2 TH/MM3 0.2 TH/MM3 Basophils # (Auto) 0.1 TH/MM3 0.0 TH/MM3 CBC Comment DIFF FINAL DIFF FINAL Differential Comment Prothrombin Time 10.6 SEC Prothromb Time International Ratio 1.0 RATIO Blood Urea Nitrogen 11 MG/DL 8 MG/DL Creatinine 0.79 MG/DL 0.63 MG/DL Random Glucose 105 MG/DL 92 MG/DL Calcium Level 9.8 MG/DL 8.5 MG/DL Sodium Level 140 MEQ/L 140 MEQ/L Potassium Level 3.6 MEQ/L 3.6 MEQ/L Chloride Level 104 MEQ/L 105 MEQ/L Carbon Dioxide Level 26.8 MEQ/L 26.0 MEQ/L Anion Gap 9 MEQ/L 9 MEQ/L Estimat Glomerular Filtration Rate 97 ML/MIN 126 ML/MIN Total Creatine Kinase 115 U/L Troponin I 0.05 NG/ML Urine Color YELLOW Urine Turbidity CLEAR Urine pH 5.5 Urine Specific [place] 1.031 Urine Protein TRACE mg/dL Urine Glucose (UA) NEG mg/dL Urine Ketones NEG mg/dL Urine Occult Blood NEG Urine Nitrite NEG Urine Bilirubin NEG Urine Urobilinogen LESS THAN 2.0 MG/DL Urine Leukocyte Esterase TRACE Urine RBC LESS THAN 1 /hpf Urine WBC 1 /hpf Urine Calcium Oxalate Crystals OCC /hpf Urine Mucus FEW /lpf Microscopic Urinalysis Comment CATH-CULT NOT IND Total Protein 5.7 GM/DL Albumin 2.9 GM/DL Alkaline Phosphatase 83 U/L Aspartate Amino Transf (AST/SGOT) 18 U/L Alanine Aminotransferase (ALT/SGPT) 24 U/L Total Bilirubin 0.6 MG/DL Imaging Last 24 hours Impressions Brain MRI 08/06/17 0353 Signed Impressions: Service Date/Time: Sunday, August 06, 2017 09:32 - CONCLUSION: Mild benign-appearing white matter disease. No acute findings Carroll Jimenez MD Cervical Spine MRI 08/06/17 0000 Signed Impressions: Service Date/Time: Sunday, August 06, 2017 09:32 - CONCLUSION: 1. Primary bony degenerative changes, disc degeneration and disc space narrowing throughout the cervical spine. 2. There is broad-based and central bulging bulging at multiple levels. Michael Paulino MD Head CT [id number]/05/[id number] Signed Impressions: Service Date/Time: Saturday, August 05, 2017 18:42 - CONCLUSION: No acute intracranial abnormality is identified. Carroll Iverson MD Chest X-Ray [id number]/05/[id number] Signed Impressions: Service Date/Time: Saturday, August 05, 2017 18:07 - CONCLUSION: 1. Linear atelectasis/scarring in the left lower lobe. 2. Age-indeterminate fracture through the lateral aspect of a left lower rib. 3. Nodular density laterally in the right base is nonspecific and may represent a nipple shadow. Antonino Turner MD Objective Remarks O. CONSTITUTIONAL/GEN: normally nourished, in NAD. Sitting at the bedside. EYES: conjunctiva normal, PERRLA, EOMI. ENT: Mouth and pharynx normal. Upper denture. NECK: No palpable lymphadenopathy, range of motion is normal. LUNGS: clear A-P, respiratory effort is normal. CARDIOVASCULAR: Bradycardic in the 40s consistently, one rhythm strip showed sinus dysrhythmia. No significant edema. GI/ABD: soft without masses, without organomegaly. NEURO: Noted weakness of the left upper extremity and right lower extremity, right hip flexors and knee extension week. SKIN: color normal, no rashes noted. HEME/LYMPH: no bruising, petechia or significant adenopathy MUSC: back is normal in appearance. Some atrophy of the left upper extremity and right lower extremity. PSYCH/MENTAL STATUS: Alert and oriented x 3. CT of the head was not acute, MRI brain is benign, MRI cervical spine shows degenerative disc disease and degenerative arthritic changes with broad-based bulging discs in several areas. A/P Assessment and Plan Mr. Jeter is a 72yo WM with a PMH of post-polio syndrome presenting to the ED with transient left-sided numbness and residual left arm weakness. He was admitted to observation. Cardiac monitoring reveals consistently bradycardic rhythm in the 40s. Patient is mostly asymptomatic. See orders. Discharge Planning Anticipate discharge in 1 day. Attending Attestation Patient seen and examined. Case reviewed and discussed with the resident team. Agree with plan of care as discussed with me and documented in the resident note. Problem List: (1) Left arm weakness ICD Codes: R29.898 - Other symptoms and signs involving the musculoskeletal system Status: Acute Plan: Pt states that his left arm weakness is greater than baseline. Since the sx originated from neck pain likely due to a cervical origin. Cervical stenosis vs worsening post-polio syndrome vs TIA * ASA 325 mg given in ED * Head CT w/o showed no acute intracranial abnormality * Brain MRI benign * Cervical MRI w/o contrast showed degenerative arthritis and degenerative disc disease with broad based bulging discs in multiple areas. * Neuro checks (2) Sinus bradycardia, persistent ICD Codes: R00.1 - Bradycardia, unspecified Plan: Cardiology consultation appreciated, will hold atenolol. (3) Post-polio syndrome ICD Codes: G14 - Postpolio syndrome Status: Chronic Plan: Has chronic weakness in left arm and right leg. (4) Hypertension ICD Codes: I10 - Essential (primary) hypertension Status: Chronic Plan: * HELD at home medication of Atenolol 25mg po qD to allow for permissive HTN and to help ameliorate bradycardia (5) Hyperlipemia ICD Codes: E78.5 - Hyperlipidemia, unspecified Status: Chronic Plan: * Continue at home medication of Pravastatin 40mg po qD (6) FEN Status: Acute Plan: Fluids: tolerating PO Electrolytes: monitor and replete as needed Nutrition: heart-healthy diet DVT Prophylaxis: Early ambulation. Lovenox 40mg subQ q24hr GI Prophylaxis: not indicated at this time Problem Qualifiers (1) Hypertension: Qualified Codes: I10 - Essential (primary) hypertension Manuela Nguyen MD Aug 06, 2017 14:14
--- NOTE | 2017-08-06 14:41 | HHI.PR ---
Addendum to Inpatient Note Addendum Reason: Additional Documentation Additional Information Tele strip today shows a 3.2" pause. Last dose of Atenolol yesterday AM. He will likely need a pacemaker. Spot reserved 0830 unlesss HR comess up off atenolol. Solis Shepard MD Aug 06, 2017 14:41
--- NOTE | 2017-08-06 18:16 | ECHRPT ---
Indication: cardiomyopathy CONCLUSIONS The left ventricular systolic function is low normal with an estimated ejection fraction of 60%.Norm al LV size. [id number] mitral valve regurgitation. No aortic valve regurgitation. There is mild tricuspid valve regurgitation. The estimated pulmonary arterial pressure is 29.5 mmHg. BP: / HR: Rhythm: MEASUREMENTS (Male / Female) Normal Values Technical Quality:Fair 2D ECHO LV Diastolic Diameter PLAX 5.4 cm 4.2 - 5.9 / 3.9 - 5.3 cm LV Systolic Diameter PLAX 4.2 cm IVS Diastolic Thickness 1.2 cm 0.6 - 1.0 / 0.6 - 0.9 cm LVPW Diastolic Thickness 1.0 cm 0.6 - 1.0 / 0.6 - 0.9 cm LV Relative Wall Thickness 0.4 RV Internal Dim ED PLAX 3.6 cm M-MODE Aortic Root Diameter MM 3.6 cm LA Systolic Diameter MM 3.7 cm LA Ao Ratio MM 1.0 AV Cusp Separation MM 2.4 cm DOPPLER Mitral E Point Velocity 44.4 cm/s Mitral A Point Velocity 64.2 cm/s Mitral E to A Ratio 0.7 LV E' Lateral Velocity 5.3 cm/s Mitral E to LV E' Lateral Ratio 8.4 LV E' Septal Velocity 5.1 cm/s Mitral E to LV E' Septal Ratio 8.8 TR Peak Velocity 221.0 cm/s TR Peak Gradient 19.5 mmHg Right Atrial Pressure 10.0 mmHg Pulmonary Artery Systolic Pressu 29.5 mmHg Right Ventricular Systolic Press 29.5 mmHg FINDINGS LEFT VENTRICLE The left ventricular systolic function is low normal with an estimated ejection fraction of 60%.Norm al LV size. RIGHT VENTRICLE Normal right ventricular size and systolic function. LEFT ATRIUM The left atrial size is normal. RIGHT ATRIUM The right atrial size is normal. ATRIAL SEPTUM Normal atrial septal thickness without atrial level shunting by limited color doppler interrogation. AORTA The aortic root and proximal ascending aorta are normal in size on limited imaging. MITRAL VALVE [id number] mitral valve regurgitation. Structurally normal mitral valve. AORTIC VALVE No aortic valve regurgitation. Trileaflet aortic valve. TRICUSPID VALVE Structurally normal tricuspid valve. There is mild tricuspid valve regurgitation. The estimated pulmonary arterial pressure is 29.5 mmHg. PULMONARY VALVE No pulmonary valve regurgitation or stenosis. VESSELS The inferior vena cava is normal in size. PERICARDIUM No pericardial effusion. Solis Shepard MD (Electronically Signed) Final Date:06 August 2017 18:15
--- NOTE | 2017-08-06 18:38 | EKG ---
Date Performed: 08/05/2017 Time Performed: 18:16:36 PTAGE: 72 years EKG: SINUS BRADYCARDIA WITH FIRST DEGREE AV BLOCK INCOMPLETE RIGHT BUNDLE BRANCH BLOCK MODERATE VOLTAGE CRITERIA FOR LVH, CONSIDER NORMAL VARIANT ABNORMAL ECG NO PREVIOUS TRACING DOCTOR: Nidia Briones Interpretating Date/Time 08/06/2017 18:35:15
[2017-08-07] VITALS (18 sets, daily range): BP systolic 124–178; BP diastolic 78–106; PULSE 42–62; RESP 16–20; TEMP 97.4–98.5; O2SAT 95–99
[2017-08-07] MEDS: SODIUM CHLOR 0.9% 1000 ML INJ 1,000 ML IV SCH ×5 (00:51→22:00)
--- NOTE | 2017-08-07 07:14 | HHI.PR ---
Addendum to Inpatient Note Addendum Reason: Additional Documentation Additional Information Patient's heart rate remains very bradycardic despite off beta cleve. Informed consent for DDD pacemaker. Solis Shepard MD Aug 07, 2017 07:14
[2017-08-07] MEDS ORDERED: MUPIROCIN 2% OINT 1 APPLIC/GM SYR NASAL SCH (07:15)
[2017-08-07] MEDS ORDERED: CHLORHEXIDINE GLUCONATE 2 % 1 PACK (2 CLOTHS) TOP SCH (07:15)
[2017-08-07] MEDS ORDERED: VANCOMYCIN INJ 1,000 MG in SODIUM CHLOR 0.9% 250 ML INJ 250 ML IV SCH (07:15)
[2017-08-07] MEDS ORDERED: POVIDONE IODINE 5% (ANTISEPSIS KIT) 4 APPLICATIONS EACH NARE SCH (07:15)
[2017-08-07] MEDS ORDERED: ceFAZolin 2 GM PREMIX 50 ML IV SCH (07:15)
[2017-08-07] MEDS ORDERED: IOHEXOL 350 MG/ML 50 ML BTL (for Cath Lab) OTHER ONE (08:26)
[2017-08-07] MEDS ORDERED: ceFAZolin INJ 1,000 MG VIAL ONE (08:42)
[2017-08-07] MEDS ORDERED: VANCOMYCIN HCL 1000 MG VIAL ONE (08:42)
[2017-08-07] MEDS ORDERED: VANCOMYCIN 500 MG VIAL ONE (08:42)
[2017-08-07] MEDS ORDERED: LIDOCAINE HCL 2% 50 ML VIAL ONE (08:44)
--- NOTE | 2017-08-07 09:02 | HHI.FPPN ---
Subjective Remarks Pt was being wheeled off the floor for pacemaker placement. He states that he was short of breath and getting more winded. He also feels anxious, otherwise, he is okay. He continues to have left arm pain. Objective Vitals Vital Signs Date Time Temp Pulse Resp B/P (MAP) Pulse Ox O2 Delivery O2 Flow Rate FiO2 08/07/17 04:00 42 08/07/17 03:47 124/84 (97) 08/07/17 03:25 98.5 47 20 170/83 (112) 95 08/06/17 23:51 98.0 47 21 162/85 (110) 94 08/06/17 20:53 97.8 49 16 138/75 (96) 97 08/06/17 20:00 49 08/06/17 17:44 97.6 42 16 140/75 (96) 97 08/06/17 15:06 47 08/06/17 13:12 44 08/06/17 12:51 97.6 41 20 160/74 (102) 95 08/06/17 11:33 41 I/O 08/06/17 08/06/17 08/06/17 08/07/17 08/07/17 08/07/17 07:00 15:00 23:00 07:00 15:00 23:00 Intake Total 300 ml 1900 ml Output Total 100 ml 450 ml Balance 200 ml 1900 ml -450 ml Intake IV Total 300 ml 1900 ml Output Urine Total 100 ml 450 ml Result Diagram: 08/06/17 0507 08/06/17 0507 Imaging Last 72 hours Impressions Chest X-Ray 08/07/17 0000 Signed Impressions: Service Date/Time: Monday, August 07, 2017 12:15 - CONCLUSION: No pneumothorax is identified following pacemaker placement. Carroll Iverson MD Brain MRI 08/06/17 0353 Signed Impressions: Service Date/Time: Sunday, August 06, 2017 09:32 - CONCLUSION: Mild benign-appearing white matter disease. No acute findings Carroll Jimenez MD Cervical Spine MRI 08/06/17 0000 Signed Impressions: Service Date/Time: Sunday, August 06, 2017 09:32 - CONCLUSION: 1. Primary bony degenerative changes, disc degeneration and disc space narrowing throughout the cervical spine. 2. There is broad-based and central bulging bulging at multiple levels. Michael Paulino MD Head CT 08/05/171804 Signed Impressions: Service Date/Time: Saturday, August 05, 2017 18:42 - CONCLUSION: No acute intracranial abnormality is identified. Carroll Iverson MD Chest X-Ray 08/05/171804 Signed Impressions: Service Date/Time: Saturday, August 05, 2017 18:07 - CONCLUSION: 1. Linear atelectasis/scarring in the left lower lobe. 2. Age-indeterminate fracture through the lateral aspect of a left lower rib. 3. Nodular density laterally in the right base is nonspecific and may represent a nipple shadow. Antonino Turner MD Objective Remarks O. CONSTITUTIONAL/GEN: normally nourished, in NAD. Lying in bed, appears anxious EYES: conjunctiva normal, PERRLA, EOMI. ENT: Mouth and pharynx normal. Upper denture. NECK: No palpable lymphadenopathy, range of motion is normal. LUNGS: clear A-P, respiratory effort is normal. CARDIOVASCULAR: Bradycardic rate, normal rhythm GI/ABD: soft without masses, without organomegaly. NEURO: Noted weakness of the left upper extremity and right lower extremity SKIN: color normal, no rashes noted. HEME/LYMPH: no bruising, petechia or significant adenopathy MUSC: back is normal in appearance. PSYCH/MENTAL STATUS: Alert and oriented x 3. A/P Assessment and Plan Mr. Jeter is a 72yo WM with a PMH of post-polio syndrome presenting to the ED with transient left-sided numbness and residual left arm weakness. Cardiac monitoring revealed consistently bradycardic rhythm in the 40s with multiple sinus pauses. Cardiology was consulted and consented patient for placement of a pacemaker which was done on 08/07/17. Will discuss with Dr. Nguyen Discharge Planning Anticipate discharge in 1-2 days pending cardiology recommendations. Problem List: (1) Left arm weakness ICD Codes: R29.898 - Other symptoms and signs involving the musculoskeletal system Status: Acute Plan: Appears that the symptoms have a cervical origin due to associated neck pain. Differential diagnosis includes cervical radiculopathy vs worsening post- polio syndrome vs TIA * Head CT w/o showed no acute intracranial abnormality * Brain MRI benign * Cervical MRI w/o contrast showed degenerative arthritis and degenerative disc disease with broad based bulging discs in multiple areas * Patient may need neurology/neurosurgery referral focus is currently on bradycardia so will need to follow-up as an outpatient * OT consulted to assist with therapy and equipment needs for discharge * Neuro checks (2) Sinus bradycardia, persistent ICD Codes: R00.1 - Bradycardia, unspecified Plan: Per cardiology recommendations, patient is not to take atenolol Echo performed on 08/06/17 shows low normal left ventricular systolic function with EF of 60% Pacemaker placed on 08/07/2017 (3) 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 Lovenox 40mg subQ q24hr GI Prophylaxis: not indicated at this time Henna Abraham MD R2 Aug 07, 2017 09:02
--- NOTE | 2017-08-07 10:05 | EKG ---
Date Performed: 08/06/2017 Time Performed: 11:18:34 PTAGE: 72 years EKG: SINUS BRADYCARDIA WITH FIRST DEGREE AV BLOCK MINIMAL ST DEPRESSION ABNORMAL ECG PREVIOUS TRACING : 08/05/2017 18.16 DOCTOR: Armand Parker Interpretating Date/Time 08/07/2017 10:03:47
--- NOTE | 2017-08-07 10:41 | CATHPROC ---
[employer] HIS Report Study Information Study Number Admission Scheduled Start Study Start [id number] Aug 05 2017 9:22PM 08/07/2017 Aug 07 2017 7:44AM [place] Service Cardiac Pacer/ICD Admit Source Facility Department Other [facility] - Project Product Manager Physician and Clinical Staff Initial Solis Carter Consulting Intern Faye Ellis,RT(R) TECH2 Other Anesthesia, LEAD MANUFACTURING TECHNICIAN Recorder Hiwot Dunlap,DILIARNeil Scrub Jorge A Murcia,RT(R) Procedures Performed Procedure Location (Site) Vessel Name Lead Insertion Venogram Subclav. Vein (Lft Subclavian Vein Equipment Time Computer Field Technician Description Size Mfg Part Number Used/Scraped [id number] 07:48 MEDLINE [employer] SUTURE, STRIP PLUS 1/2" * Used *[id number] 07:48 MEDLINE PACER ADHESIVE, MASTISOL 2/3CC 2/3CC 0523-48 Used 07:48 MEDLINE PACER ALVA, LIMB * 2530 *[id number] Used [id number] 07:48 MEDLINE PACER PACK, PACER CUSTOM * Used *[id number] 07:48 MEDLINE PACER PEN, SKIN DUAL W/ RULER * Used *[id number] 08:29 [employer] MEDICAL PACER SAFE SHEATH, FR7, 13CM FR 7 [id number] Used 08:29 [employer] MEDICAL PACER SAFE SHEATH, FR7, 13CM FR 7 [id number] Used 09:24 Needle Sponge Count 2 22 Used 10:28 Needle Sponge Count 2 22 Used 09:24 Needle Sponge Count 25 1 Used 10:20 Needle Sponge Count 25 1 Used 10:28 Needle Sponge Count 25 1 Used 10:20 Needle Sponge Count 5 5 Used 10:28 Needle Sponge Count 5 5 Used 09:23 Needle Sponge Count 5 5 Used 09:38 [employer] OMNIPAQUE, 350 MG, 50ML 50ML [id number] Used [id number] *[id number] SUTURE, 2-0 VICRYL [SH] (VOG630N) SUTURE, 3-0 VICRYL [SH] (UTC639X) SUTURE, 4-0 MONOCRYL [PS2] (Y496G) [id number] 07:48 [employer] BL[employer]ET,WARM AIR CCL * Used *[id number] [facility] PAD, ELECTROSURGICAL 07:48 * [id number] *[id number] Used SURGICAL GROUNDING ORANGE LEAD, CAPSURE FIX NOVUS, 4076-45CM 09:53 [employer] 45CM Used 45CM *[id number] LEAD, CAPSURE FIX NOVUS, 4076-52CM 09:49 [employer] 52CM Used 52CM *[id number] 10:13 [employer] MONITOR, PACEMAKER\\ICD 16432P Used PACEMAKERMINDY DR 10:03 [employer] OEA-DDDR [id number] Used SURESCAN [id number] 07:48 [employer]IA. / * Used *31386 Equipment Model, Serial, Lot Number and Expiration Data Description Model Number Serial Number Lot Number Expiration Date LEAD, CAPSURE FIX NOVUS, 45CM 4076-45 [id number] 07-15-2019 LEAD, CAPSURE FIX NOVUS, 52CM 4076-52 [id number] 05-30-2019 PACEMAKER, MINDY SERRA [id number] 01-11-2019 SURESCAN History: Current Medications Medication Dosage/Unit Route Frequency Last Date/Time Taken Statins (any) Beta Yahir LOVENOX History: Allergies Allergy Reaction No Known Allergies History: Risk Factors Hypertension Dyslipidemia Yes Yes Labs Hgb (g/dl) Hct (%) RBC (MIL/MM3) WBC (l/cumm) Platelets (thousands) 11.60-17.00 35.00-51.00 4.00-5.90 4.00-11.00 150.00-450.00 14.7 43.7 4.8 4.7 149 Glucose (mg/dl) BUN (mg/dl) Creatinine (mg/dl) BUN:Creatinine (1:x) 74.00-106.00 7.00-18.00 0.50-1.30 10.00-20.00 126 8 0.6 13.3 Na (meq/l) K (meq/l) Cl (meq/l) CO2 (mmol/L) Ca (mg/dl) 136.00-145.00 3.50-5.10 98.00-107.00 21.00-32.00 8.50-10.10 140 3.6 105 26 8.5 INR (PTT:PT) 0.90-1.10 1 Medication Medication Total Dose (Bolus/Oral) Medication Total Dosage/Unit 2% XYLOCAINE 50 mL Medications (Bolus/Oral) Medication Time Given Dosage/Unit Administered By Reason 2% XYLOCAINE 08/07/2017 9:36:57 AM 50 mL Solis Shepard For pain 50 mL 2% XYLOCAINE given in lab by Solis Shepard via Subcutaneous. Ordered by Solis Shepard. Reason: For pain. Medication (Drip) Medication Time Given Dosage/Unit Concentration/Unit Diluent (ml) Solution ANCEF 08/07/2017 9:24:00 AM 2 g 2 g ANCEF given in lab by Anesthesia, LEAD MANUFACTURING TECHNICIAN in Right Antecubital via Peripheral IV. Ordered by Solis Shepard. Reason: As per physicians verbal order. IV Solutions 08/07/2017 9:11:03 AM 0 mL (IV) NaCl .9 IV Solutions given in lab by Anesthesia, LEAD MANUFACTURING TECHNICIAN in Left Wrist via Peripheral IV. Pump/Drip Flow = 50 ml /hr using NaCl .9. Ordered by Solis Shepard. Reason: As per physicians verbal order. IV Solutions 08/07/2017 9:11:32 AM 0 mL (IV) NaCl .9 IV Solutions given in lab by Anesthesia, LEAD MANUFACTURING TECHNICIAN in Right Antecubital via Peripheral IV. Pump/Drip Flow = 50 ml/hr using NaCl .9. Ordered by Solis Shepard. Reason: As per physicians verbal order. VANCOMYCIN DRIP 08/07/2017 9:25:00 AM 1 g 1 g VANCOMYCIN DRIP given in lab by Anesthesia, LEAD MANUFACTURING TECHNICIAN in Right Antecubital via Peripheral IV. Ordered by Solis Shepard. Reason: As per physicians verbal order. Initial Case Assessment Cardiovascular HR NIBP Chest Pain 56 204/101 0 Edema Present Skin color Skin None Normal Warm Dry Neurological State Oriented to time-place- Alert Moves all extremities person Respiration - General Respiration Rate SpO2 (%) (B/min) 20 94 Final Case Assessment Cardiovascular HR NIBP 64 127/76 Edema Present Skin color Skin None Normal Warm Dry Neurological State Oriented to time-place- Alert Moves all extremities person Respiration - General Respiration Rate SpO2 (%) (B/min) 20 98 Chronological Log Time Study Chronological Log 8:26:58 Patient arrived via Bed. 8:27:00 Patient Name, D.O.B, / Armband Verified By R.N. 8:27:01 Consent signed by the physician and the patient and verified by the Project Product Manager staff. 8:27:02 Pre-op and post- op instructions given; patient acknowledges understanding of instructions. 8:27:07 Patient arrived with no working IV. 8:28:55 Verbal Stimulation=2 Physical Stimulation=2 Airway=2 Respiration=2 TOTAL=8. (0=absent, 1=smith ited, 2=present) 8:29:16 Presedation assessment performed by Project Product Manager RN. 8:29:42 Patient has been NPO for More than 6Hrs. Skin Breakdown-none per patient 8:29:49 8:30:00 Anesthesia at bedside. Assumes care of patient. Toya GOYAL Unable to flush IV from ED left wrist or obtain blood return. New IV started left wrist by LEAD MANUFACTURING TECHNICIAN and new IV started RT 8:30:00 AC by Dejah GOYAL. Both IVS with excellent blood return. NS to both IVS. Old IV left intact l eft wrist 8:48:39 Patient Warmer Placed on the Table. 8:48:41 Disposable Defibrillator Pads Placed On Patient. 8:48:44 Dandy Prominences Protected 8:49:09 History and physical on the chart or being dictated. Assessment: Initial Case, HR=56 BPM, RPBT=948/101 mmhg, Chest Pain=0, Edema=None, Color=Normal, Skin = Warm, Dry 9:08:35 Neurological: State=Alert, Ox3, CARBONE Respiration: Resp=20 B/min, SpO2=94 % 9:09:29 Table restraints applied according to hospital policy 9:09:31 Left Upper Chest Prepped Times Two. 9:10:00 Reference ECG taken 9:10:12 A # 20 IV was noted in the Antecubital (right). Grade = ~GRADE~ 9:10:20 A # 18 IV was noted in the Wrist (left). Grade = ~GRADE~ IV Solutions given in lab by Anesthesia, LEAD MANUFACTURING TECHNICIAN in Left Wrist via Peripheral IV. Pump/Drip Flow = 50 ml/hr using NaCl .9. 9:11:03 Ordered by Solis Shepard. Reason: As per physicians verbal order. IV Solutions given in lab by Anesthesia, LEAD MANUFACTURING TECHNICIAN in Right Antecubital via Peripheral IV. Pump/Drip Flow = 50 ml/hr using 9:11:32 NaCl .9. Ordered by Solis Shepard. Reason: As per physicians verbal order. 9:11:52 Bovie ground pad applied to: right thigh 9:11:59 2% CHLORHEXIDINE GLUCONATE WASH AND NASAL SWIPE DONE PRIOR TO PROCEDURE. First Sponge And Instrument Count Done by Faye Ellis, RT(R) TECH2. 9:22:56 Hypo's: 5, Sponges: 25, Bovie/scratch: 2 Sutures: 5, Blades: 2, Instruments: 26, Syveck Patches: 0 2 g ANCEF given in lab by Anesthesia, LEAD MANUFACTURING TECHNICIAN in Right Antecubital via Peripheral IV. Ordered by Solis Kimble. Reason: 9:24:00 As per physicians verbal order. 1 g VANCOMYCIN DRIP given in lab by Anesthesia, LEAD MANUFACTURING TECHNICIAN in Right Antecubital via Peripheral IV. Ord ered by Devyn, 9:25:00 Solis. Reason: As per physicians verbal order. 9:35:00 Immediate Presedation assesment performed by physician. Time Out. Correct patient, procedure, procedure equipment, site and side verified with physician present. Time 9:35:00 concurred by MD, individual staff and LEAD MANUFACTURING TECHNICIAN. Time Out #2 - Consents verified, patient in correct position, all results are labled and display ed, safety precautions 9:35:00 taken, antibiotics administered. Time out concurred by MD, individual staff and LEAD MANUFACTURING TECHNICIAN in procedur e 9:35:00 Case Start 9:36:57 50 mL 2% XYLOCAINE given in lab by Solis Shepard via Subcutaneous. Ordered by Solis Shepard. Reason: For pain. 9:37:48 Surgical Incision Made. 9:44:00 The Subclav. Vein (Lft was manually injected with 20 cc's of contrast. OMNIPAQUE, 350 MG, 50 ML 50ML used. 9:45:24 Vascular access was obtained in the Subclav. Vein (Lft. 9:46:27 Vascular access was obtained in the Subclav. Vein (Lft. 9:48:50 A SAFE SHEATH, FR7, 13CM FR 7 was advanced into the Subclav. Vein (Lft using the Percutaneou s technique. 9:50:19 A LEAD, CAPSURE FIX NOVUS, 52CM 52CM was inserted and positioned in the RV. 9:50:26 Lead placement verified under fluoroscopy 9:50:51 The RV lead impedance and threshold being tested. 9:55:03 The RV lead was sutured to the fascia. 9:55:07 A SAFE SHEATH, FR7, 13CM FR 7 was advanced into the Subclav. Vein (Lft using the Percutaneou s technique. 9:55:15 A LEAD, CAPSURE FIX NOVUS, 45CM 45CM was inserted and positioned in the RA. 9:55:24 Lead placement verified under fluoroscopy 9:55:29 The Atrial lead impedance and threshold is being tested. 10:00:00 The Atrial lead was sutured to the fascia. 10:10:58 A PACEMAKER, MINDY LEONG OEA-DDDR was connected and placed in the pocket. 10:13:09 Pocket flushed with antibiotic solution Second Sponge And Instrument Count Done by Faye Ellis, RT(R) TECH2. 10:20:05 Hypo's: 5, Sponges: 25, Bovie/scratch: 2 Sutures: ~SUTURE~, Blades: 2, Instruments: ~INSTRU~, Syveck Patches: ~SYVECK PATCH~ 10:20:36 The pocket was closed. 10:20:44 Implant Procedure was performed. 10:20:53 A PPM Implant . (Dual) The Final Sponge And Instrument Count Done by Faye Ellis, RT(R) TECH2. 10:27:38 Hypo's: 5, Sponges: 25, Bovie/scratch: 2 Sutures: 5, Blades: 2, Instruments: 26, Syveck Patches: 0 10:35:06 Steri-strips and a sterile dressing applied to site. 10:35:09 A sling was placed on the affected arm. Assessment: Final Case, HR=64 BPM, EHBJ=623/76 mmhg, Edema=None, Color=Normal, Skin = Warm, Dry 10:35:16 Neurological: State=Alert, Ox3, CARBONE Respiration: Resp=20 B/min, SpO2=98 % 10:35:20 Case End 10:35:50 No case complications noted. 10:35:52 Cine recording checked. 10:35:57 Holding Area notified of successful intervention. 10:36:01 Bedside Report will be given. 10:36:04 Implantable Device card placed in patient's chart. 10:36:09 Contrast Scanned 10:36:12 Defibrillator and ground pads removed. Skin intact. 10:38:30 Patient moved to stretcher and transported to [facility] in stable condition. End Study - Contrast Media Used In Study Contrast Total Opened (mL) Total Used (mL) Total Wasted (mL) Omnipaque 50 20 30 End Study - Maximum Contrast Load Max Contrast Load (mL) 774.2 End Study - Radiation Exposure Fluoro Time (minutes) 4.1 End Study - Patient Disposition Complications Transferred To Interventional Outcome No Telemetry Bed successful
[2017-08-07] MEDS ORDERED: ACETAMINOPHEN 325 MG TAB PO PRN (11:00)
[2017-08-07] MEDS ORDERED: traMADol HCL 50 MG TAB PO PRN ×2 (11:00)
[2017-08-07] MEDS ORDERED: BACITRACIN OINT 0.9 GM PKT TOP PRN (11:00)
--- NOTE | 2017-08-07 11:13 | MP ---
cc: WILLARD ZHANG M.D. DATE OF SURGERY: 08/07/2017 PREOPERATIVE DIAGNOSIS Symptomatic bradycardia. POSTOPERATIVE DIAGNOSIS Symptomatic bradycardia. PROCEDURE Insertion of dual-chamber rate responsive pacemaker. DESCRIPTION OF PROCEDURE Informed consent was obtained for the device. The patient received preoperative antibiotics with two grams of IV Ancef and one gram of IV vancomycin. Sedation was provided by Anesthesia. Using 1% lidocaine for local anesthesia an incision was made parallel to and below the left clavicle. Using blunt and sharp dissection a pocket was fashioned above the pectoralis muscle. Bovie was used for hemostasis. Using 20 cc of contrast via a left arm IV, access was easily obtained and two guidewires placed into the superior vena cava. Over the first guidewire a 7 Romanian peel-away sheath was introduced and through this the ventricular lead was inserted. Using appropriate stylets it was screwed into the RV apex with adequate sensing and pacing thresholds. The peel-away sheath was removed. Over the second guidewire a 7 Romanian peel-away sheath was introduced and through this the atrial lead was inserted and screwed into the right atrial appendage with adequate sensing and pacing thresholds. Appropriate slack was put on both leads and both leads were secured to the underlying fascia using three 2-0 silk sutures for each lead. There was some oozing from the pocket so some additional Bovie was performed to get hemostasis. The leads were then connected to the pacemaker generator which was then positioned on the floor of the pocket with the leads coiled behind it. The wound was irrigated with antibiotic solution. The generator was secured to the floor of the pocket using a single 2-0 silk suture. The wound was then carefully closed in layers using interrupted 2-0 Vicryl sutures for the deep fascial layer, interrupted 3-0 Vicryl sutures for the subcutaneous layer followed by running 4-0 Monocryl stitch and then Steri-Strips and 4x4 dressing. Of note, 10 volts was checked on both leads with no diaphragmatic pacing seen. The pacemaker is a Medtronic model A2DR01, serial number [id number]. This is the Advisa DR AMRYSE Kaplan device. The atrial lead is a Medtronic model 476, length 45 cm, serial number [id number], with a P-wave of 1.9 mV, slew of 0.5 volts per second, resistance 817 ohms and a threshold of 1.2 volts. The ventricular lead is a Medtronic model 4076, length 52 cm, serial number [id number], with an R-wave of 5.6 mV, slew rate of 0.3 volts per second, resistance 1290 ohms and a threshold of 0.6 volts. Chest x-ray is pending. Anticipate discharge tomorrow if stable. MD JASON Florentino/SANDY /10:54 AM /11:05 AM
[2017-08-07] MEDS ORDERED: MIDAZOLAM HCL 2 MG/2 ML VIAL IV ONE (12:00)
[2017-08-07] MEDS ORDERED: PROPOFOL 200 MG/20 ML AMP IV ONE (12:00)
[2017-08-07] MEDS: SODIUM CHLORIDE 0.9% FLUSH 10 ML FLUSH IV FLUSH SCH ×2 (12:29→21:00)
[2017-08-07] MEDS: amLODIPine BESYLATE 5 MG TAB PO SCH (12:29)
[2017-08-07] MEDS: METOPROLOL TARTRATE 25 MG TAB PO SCH ×2 (12:29→20:58)
[2017-08-07] MEDS: PRAVASTATIN SOD 40 MG TAB PO SCH (13:01)
[2017-08-07] MEDS: DOCUSATE SODIUM 50 MG/SENNA 8.6 MG TAB PO SCH ×2 (13:01→21:00)
[2017-08-07] MEDS: ENOXAPARIN SODIUM 40 MG/0.4 ML SYRINGE SQ SCH (13:02)
--- NOTE | 2017-08-07 13:07 | RADRPT ---
EXAM DATE/TIME: 08/07/2017 12:15 [place] COMPARISON: CHEST SINGLE AP, August 05, 2017, 18:07. INDICATIONS : R/o pneumothorax, post pacemaker MEDICAL HISTORY : Hypercholesterolemia. Hypertension SURGICAL HISTORY : None. ENCOUNTER: Initial ACUITY: 2 days PAIN SCORE: Non-responsive. LOCATION: Bilateral chest FINDINGS: Rotated portable AP view of the chest demonstrates a normal-sized cardiac silhouette. Left chest wall cardiac pacing device is now present with lead tips overlying the right heart. No pneumothorax is vi sualized. Lungs are underinflated with mild atelectasis at the lung bases. No effusion or consolidati on is present. Bones demonstrate no acute finding. There is thoracic scoliosis. CONCLUSION: No pneumothorax is identified following pacemaker placement. Carroll Iverson MD on August 07, 2017 at 13:03 Board Certified Radiologist. This report was verified electronically.
--- NOTE | 2017-08-07 14:12 | EKG ---
Date Performed: 08/07/2017 Time Performed: 12:26:50 PTAGE: 72 years EKG: Baseline artifact present Atrial pacing Abnormal ECG PREVIOUS TRACING : 08/06/2017 11.18 No definite changes although both EKGs have artifact. DOCTOR: Madi Davila Interpretating Date/Time 08/07/2017 14:11:25
[2017-08-08] VITALS (16 sets, daily range): BP systolic 120–171; BP diastolic 71–99; PULSE 52–84; RESP 16–20; TEMP 97.2–98.4; O2SAT 92–99
[2017-08-08 06:59] LABS: HEMATOCRIT 44.5 % (39.0-51.0); MEAN CELL VOLUME 89.8 FL (80.0-100.0); MEAN CORPUSCULAR HEMOGLOBIN 30.9 PG (27.0-34.0); MEAN CORPUSCULAR HGB CONC 34.4 % (32.0-36.0); PLATELET COUNT 143 TH/MM3 (150-450); RED BLOOD COUNT 4.96 MIL/MM3 (4.50-5.90); RED CELL DISTRIBUTION WIDTH 14.1 % (11.6-17.2); REVIEW FLAG FINAL; WHITE BLOOD COUNT 6.7 TH/MM3 (4.0-11.0)
[2017-08-08 07:19] LABS: BICARBONATE 26.2 MEQ/L (21.0-32.0); POTASSIUM 3.7 MEQ/L (3.5-5.1)
[2017-08-08] MEDS: SODIUM CHLOR 0.9% 1000 ML INJ 1,000 ML IV SCH ×4 (08:00→22:20)
--- NOTE | 2017-08-08 08:16 | PD.CARD.PN ---
Subjective Subjective Remarks generalized soreness. No angina or SOB Objective Medications Current Medications Medications (Trade) Dose Ordered Sig/Aubrey Route Start Time Stop Time Status Last Admin Sodium Chloride 1,000 ml @ 70 mls/hr [id number] IV 08/05/17 20:15 08/07/17 00:51 (NS Flush) 2 ml UNSCH PRN IV FLUSH 08/05/17 21:30 (NS Flush) 2 ml BID IV FLUSH 08/06/17 09:00 08/07/17 21:00 (Zofran Inj) 4 mg Q6H PRN IVP 08/05/17 22:45 (Lovenox Inj) 40 mg DAILY SQ 08/06/17 09:00 08/06/17 09:05 (Tylenol) 650 mg Q6H PRN PO 08/05/17 22:45 08/07/17 21:02 ([place] 5-325 Mg) 1 tab Q4H PRN PO 08/05/17 22:45 ([place] 7.5-325 Mg) 1 tab Q4H PRN PO 08/05/17 22:45 (Morphine Inj) 4 mg Q3H PRN IV PUSH 08/05/17 22:45 08/07/17 12:24 (Narcan Inj) 0.4 mg UNSCH PRN IV PUSH 08/05/17 22:45 (Bridgette-Colace) 1 tab BID PO 08/06/17 09:00 08/06/17 21:34 (Milk Of Magnesia Liq) 30 ml Q12H PRN PO 08/05/17 22:45 (Senokot) 17.2 mg Q12H PRN PO 08/05/17 22:45 (Dulcolax Supp) 10 mg DAILY PRN RECTAL 08/05/17 22:45 (Lactulose Liq) 30 ml DAILY PRN PO 08/05/17 22:45 (Antivert) 25 mg BID PRN PO 08/05/17 22:45 (Pravachol) 40 mg DAILY PO 08/06/17 09:00 08/06/17 09:05 Sodium Chloride 1,000 ml @ 100 mls/hr Q10H IV 08/07/17 02:00 Cefazolin Sodium/ Dextrose 50 ml @ 100 mls/hr SLOT ROUTER IV 08/07/17 07:15 08/10/17 07:14 Vancomycin HCl 1000 mg/Sodium Chloride 250 ml @ 250 mls/hr SLOT ROUTER IV 08/07/17 07:15 08/11/17 07:14 (Betadine 5% Antisepsis Kit) 1 applic SLOT ROUTER EACH NARE 08/07/17 07:15 08/11/17 07:14 (Bactroban Nasal 2% Oint) 1 applic SLOT ROUTER NASAL 08/07/17 07:15 08/11/17 07:14 (Chlorhexidine 2% Cloth) 3 pack SLOT ROUTER TOP 08/07/17 07:15 08/11/17 07:14 (Bacitracin Oint Packet) 0.9 gm UNSCH PRN TOP 08/07/17 11:00 (Lopressor) 25 mg Q12HR PO 08/07/17 12:30 08/07/17 20:58 (Norvasc) 5 mg DAILY PO 08/07/17 12:30 08/07/17 12:29 Vital Signs / I&O Vital Signs Date Time Temp Pulse Resp B/P (MAP) Pulse Ox O2 Delivery O2 Flow Rate FiO2 08/08/17 06:00 54 08/08/17 05:00 52 08/08/17 04:00 54 08/08/17 04:00 98.4 60 16 127/78 (94) 99 08/08/17 02:00 56 08/08/17 01:00 56 08/08/17 00:30 97.8 59 16 147/96 (113) 99 08/08/17 00:00 52 08/07/17 23:00 59 08/07/17 22:00 56 08/07/17 21:00 61 08/07/17 20:00 54 08/07/17 19:22 97.8 62 16 130/78 (95) 99 08/07/17 19:00 59 08/07/17 18:00 61 08/07/17 17:00 59 08/07/17 16:01 60 08/07/17 15:00 59 08/07/17 15:00 98.0 61 16 160/95 (116) 99 08/07/17 14:00 59 08/07/17 13:00 59 08/07/17 12:09 59 08/07/17 11:40 60 08/07/17 11:30 97.4 60 16 178/106 (130) 99 08/07/17 11:12 94 Room Air I/O 08/07/17 08/07/17 08/07/17 08/08/17 08/08/17 08/08/17 07:00 15:00 23:00 07:00 15:00 23:00 Intake Total 1900 ml 680 ml 360 ml Output Total 450 ml 900 ml 350 ml Balance 1900 ml -450 ml -220 ml 10 ml Intake Oral 680 ml 360 ml IV Total 1900 ml Output Urine Total 450 ml 900 ml 350 ml # Bowel Movements 0 Physical Exam Alert Chest clear Pacer wound looks perfect CV S1S2 RRR Pacer check OK CXR good lead position and no PTX Ext no edema Laboratory Laboratory Tests Test 08/08/17 06:28 White Blood Count 6.7 TH/MM3 Red Blood Count 4.96 MIL/MM3 Hemoglobin 15.3 GM/DL Hematocrit 44.5 % Mean Corpuscular Volume 89.8 FL Mean Corpuscular Hemoglobin 30.9 PG Mean Corpuscular Hemoglobin Concent 34.4 % Red Cell Distribution Width 14.1 % Platelet Count 143 TH/MM3 Mean Platelet Volume 9.9 FL Blood Urea Nitrogen 8 MG/DL Creatinine 0.54 MG/DL Random Glucose 97 MG/DL Calcium Level 8.6 MG/DL Sodium Level 139 MEQ/L Potassium Level 3.7 MEQ/L Chloride Level 105 MEQ/L Carbon Dioxide Level 26.2 MEQ/L Anion Gap 8 MEQ/L Estimat Glomerular Filtration Rate 150 ML/MIN Imaging Last 48 hours Impressions Chest X-Ray 08/07/17 0000 Signed Impressions: Service Date/Time: Monday, August 07, 2017 12:15 - CONCLUSION: No pneumothorax is identified following pacemaker placement. Carroll Iverson MD Assessment and Plan Problem List: (1) Pacemaker ICD Codes: Z95.0 - Presence of cardiac pacemaker Plan: Normal function (2) Sinus bradycardia, persistent ICD Codes: R00.1 - Bradycardia, unspecified Plan: resolved with pacing Assessment and Plan OK to discharge. Requesting FPC - he has no home here currently Solis Shepard MD Aug 08, 2017 08:16
[2017-08-08] MEDS: DOCUSATE SODIUM 50 MG/SENNA 8.6 MG TAB PO SCH ×2 (08:42→20:38)
[2017-08-08] MEDS: PRAVASTATIN SOD 40 MG TAB PO SCH (08:42)
[2017-08-08] MEDS: METOPROLOL TARTRATE 25 MG TAB PO SCH ×2 (08:42→20:38)
[2017-08-08] MEDS: amLODIPine BESYLATE 5 MG TAB PO SCH (08:43)
[2017-08-08] MEDS: SODIUM CHLORIDE 0.9% FLUSH 10 ML FLUSH IV FLUSH SCH ×2 (08:43→20:39)
[2017-08-08] MEDS: ENOXAPARIN SODIUM 40 MG/0.4 ML SYRINGE SQ SCH (08:43)
--- NOTE | 2017-08-08 10:24 | HHI.FPPN ---
Subjective Remarks Mr Jeter is feeling better today s/p pacemaker placement. He is tolerating PO, pain is controlled with Ibuprofen and he feels like he needs to void soon. He is passing flatus. He is concerned about not having a home here (from [place] but planning to relocate here) but needing to discharge to someplace to recover. Was told his observation status precludes going to SNF for rehab, but will talk with CM about LONGTERM placement with HH [id number] PT. Denies CP, SOB, N/V/D, DVT pain. (Gonzalo Bolaños MD R1) Objective Vitals Vital Signs Date Time Temp Pulse Resp B/P (MAP) Pulse Ox O2 Delivery O2 Flow Rate FiO2 08/08/17 08:42 150/93 (112) 08/08/17 08:00 60 20 171/99 (123) 95 08/08/17 06:00 54 08/08/17 05:00 52 08/08/17 04:00 54 08/08/17 04:00 98.4 60 16 127/78 (94) 99 08/08/17 02:00 56 08/08/17 01:00 56 08/08/17 00:30 97.8 59 16 147/96 (113) 99 08/08/17 00:00 52 08/07/17 23:00 59 08/07/17 22:00 56 08/07/17 21:00 61 08/07/17 20:00 54 08/07/17 19:22 97.8 62 16 130/78 (95) 99 08/07/17 19:00 59 08/07/17 18:00 61 08/07/17 17:00 59 08/07/17 16:01 60 08/07/17 15:00 59 08/07/17 15:00 98.0 61 16 160/95 (116) 99 08/07/17 14:00 59 08/07/17 13:00 59 08/07/17 12:09 59 08/07/17 11:40 60 08/07/17 11:30 97.4 60 16 178/106 (130) 99 08/07/17 11:12 94 Room Air I/O 08/07/17 08/07/17 08/07/17 08/08/17 08/08/17 08/08/17 07:00 15:00 23:00 07:00 15:00 23:00 Intake Total 1900 ml 680 ml 360 ml Output Total 450 ml 900 ml 350 ml Balance 1900 ml -450 ml -220 ml 10 ml Intake Oral 680 ml 360 ml IV Total 1900 ml Output Urine Total 450 ml 900 ml 350 ml # Bowel Movements 0 (Gonzalo Bolaños MD R1) Result Diagram: 08/08/17 0628 08/08/17 0628 Imaging Last Impressions Chest X-Ray 08/07/17 0000 Signed Impressions: Service Date/Time: Monday, August 07, 2017 12:15 - CONCLUSION: No pneumothorax is identified following pacemaker placement. Carroll Iverson MD Brain MRI 08/06/17 0353 Signed Impressions: Service Date/Time: Sunday, August 06, 2017 09:32 - CONCLUSION: Mild benign-appearing white matter disease. No acute findings Carroll Jimenez MD Cervical Spine MRI 08/06/17 0000 Signed Impressions: Service Date/Time: Sunday, August 06, 2017 09:32 - CONCLUSION: 1. Primary bony degenerative changes, disc degeneration and disc space narrowing throughout the cervical spine. 2. There is broad-based and central bulging bulging at multiple levels. Michael Paulino MD Head CT 08/05/17 1805 Signed Impressions: Service Date/Time: Saturday, August 05, 2017 18:42 - CONCLUSION: No acute intracranial abnormality is identified. Carroll Iverson MD Objective Remarks CONSTITUTIONAL/GEN: normally nourished elderly male in NAD lying in bed. Able to converse in complete sentences today. Improved. EYES: conjunctiva normal, PERRLA, EOMI. ENT: Mouth and pharynx normal. Upper denture. No upper lip fasciculations today. NECK: No palpable lymphadenopathy, range of motion is normal. No meningeal signs. LUNGS: clear to auscultation bilaterally, respiratory effort is normal. No increased WOB; no wheezing or rhonchi. CARDIOVASCULAR: RRR with no murmur, rub or gallop; pacemaker set at 60 bpm GI/ABD: soft without masses, without organomegaly. NEURO: Noted weakness of the left upper extremity and right lower extremity. No limb pain today. SKIN: color normal, no rashes noted. No lesions. Surgical site from pacemaker placement over left upper chest c/d/i. HEME/LYMPH: no bruising, petechia or significant adenopathy MUSC: back is normal in appearance. moves all extremities spontaneously. PSYCH/MENTAL STATUS: Alert and oriented x 3. Improved mentation. Procedures Pacemaker placement 08/07/17: The pacemaker is a Medtronic model A2DR01, serial number [id number]. This is the Nicolasa SERRA [employer] device. The atrial lead is a Medtronic model 476, length 45 cm, serial number [id number], with a P-wave of 1.9 mV, slew of 0.5 volts per second, resistance 817 ohms and a threshold of 1.2 volts. The ventricular lead is a Medtronic model 4076, length 52 cm, serial number [id number], with an R-wave of 5.6 mV, slew rate of 0.3 volts per second, resistance 1290 ohms and a threshold of 0.6 volts. Medications and IVs Current Medications Medications (Trade) Dose Ordered Sig/Aubrey Route Start Time Stop Time Status Last Admin Sodium Chloride 1,000 ml @ 70 mls/hr [id number] IV 08/05/17 20:15 08/07/17 00:51 (NS Flush) 2 ml UNSCH PRN IV FLUSH 08/05/17 21:30 (NS Flush) 2 ml BID IV FLUSH 08/06/17 09:00 08/08/17 08:43 (Zofran Inj) 4 mg Q6H PRN IVP 08/05/17 22:45 (Lovenox Inj) 40 mg DAILY SQ 08/06/17 09:00 08/08/17 08:43 (Tylenol) 650 mg Q6H PRN PO 08/05/17 22:45 08/07/17 21:02 ([place] 5-325 Mg) 1 tab Q4H PRN PO 08/05/17 22:45 ([place] 7.5-325 Mg) 1 tab Q4H PRN PO 08/05/17 22:45 (Morphine Inj) 4 mg Q3H PRN IV PUSH 08/05/17 22:45 08/07/17 12:24 (Narcan Inj) 0.4 mg UNSCH PRN IV PUSH 08/05/17 22:45 (Bridgette-Colace) 1 tab BID PO 08/06/17 09:00 08/08/17 08:42 (Milk Of Magnesia Liq) 30 ml Q12H PRN PO 08/05/17 22:45 (Senokot) 17.2 mg Q12H PRN PO 08/05/17 22:45 (Dulcolax Supp) 10 mg DAILY PRN RECTAL 08/05/17 22:45 (Lactulose Liq) 30 ml DAILY PRN PO 08/05/17 22:45 (Antivert) 25 mg BID PRN PO 08/05/17 22:45 (Pravachol) 40 mg DAILY PO 08/06/17 09:00 08/08/17 08:42 Sodium Chloride 1,000 ml @ 100 mls/hr Q10H IV 08/07/17 02:00 Cefazolin Sodium/ Dextrose 50 ml @ 100 mls/hr NON LICENSED NUCLEAR PLANT OPERATOR IV 08/07/17 07:15 08/10/17 07:14 Vancomycin HCl 1000 mg/Sodium Chloride 250 ml @ 250 mls/hr NON LICENSED NUCLEAR PLANT OPERATOR IV 08/07/17 07:15 08/11/17 07:14 (Betadine 5% Antisepsis Kit) 1 applic NON LICENSED NUCLEAR PLANT OPERATOR EACH NARE 08/07/17 07:15 08/11/17 07:14 (Bactroban Nasal 2% Oint) 1 applic NON LICENSED NUCLEAR PLANT OPERATOR NASAL 08/07/17 07:15 08/11/17 07:14 (Chlorhexidine 2% Cloth) 3 pack NON LICENSED NUCLEAR PLANT OPERATOR TOP 08/07/17 07:15 08/11/17 07:14 (Bacitracin Oint Packet) 0.9 gm UNSCH PRN TOP 08/07/17 11:00 (Lopressor) 25 mg Q12HR PO 08/07/17 12:30 08/08/17 08:42 (Norvasc) 5 mg DAILY PO 08/07/17 12:30 08/08/17 08:43 (Gonzalo Bolaños MD R1) Urinary Catheter: No (Gonzalo Bolaños MD R1) Vascular Central Line Catheter: No (Gonzalo Bolaños MD R1) A/P Assessment and Plan Mr. Jeter is a 72yo WM with a PMH of post-polio syndrome presenting to the ED with transient left-sided numbness and residual left arm weakness. Cardiac monitoring revealed consistently bradycardic rhythm in the 40s with multiple sinus pauses. Cardiology was consulted and consented patient for placement of a pacemaker which was done on 08/07/17. D/w Dr Abraham Discharge Planning Anticipate discharge in 1-2 days pending cardiology recommendations. (Gonzalo Bolaños MD R1) Attending Attestation Patient seen and examined. Case reviewed and discussed with the resident team. Agree with plan of care as discussed with me and documented in the resident note. (Manuela Nguyen MD) Problem List: (1) Left arm weakness ICD Codes: R29.898 - Other symptoms and signs involving the musculoskeletal system Status: Acute Plan: Appears that the symptoms have a cervical origin due to associated neck pain. Differential diagnosis includes cervical radiculopathy vs worsening post- polio syndrome vs TIA * Head CT w/o showed no acute intracranial abnormality * Brain MRI benign * Cervical MRI w/o contrast showed degenerative arthritis and degenerative disc disease with broad based bulging discs in multiple areas * Patient may need neurology/neurosurgery referral focus is currently on bradycardia so will need to follow-up as an outpatient * OT consulted to assist with therapy and equipment needs for discharge * Neuro checks * PT face to face in LONGTERM upon discharge (2) Sinus bradycardia, persistent ICD Codes: R00.1 - Bradycardia, unspecified Plan: Per cardiology recommendations, patient is not to take atenolol Echo performed on 08/06/17 shows low normal left ventricular systolic function with EF of 60% Pacemaker placed on 08/07/2017 -Improved status today; pt feels less fatigued and more energetic; pacer set at [address] Shepard (3) 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 Lovenox 40mg subQ q24hr GI Prophylaxis: not indicated at this time (Gonzalo Bolaños MD R1) Gonzalo Bolaños MD R1 Aug 08, 2017 10:24 Manuela Nguyen MD Aug 08, 2017 13:39
--- NOTE | 2017-08-08 11:05 | HHI.FF ---
Face to Face Verification Diagnosis: (1) Post-polio syndrome (2) Left arm weakness (3) Sinus bradycardia, persistent (4) Pacemaker (5) Multiple neurological symptoms Physical Therapy Order: Evaluate and Treat, Improve ambulation, Strength and gait training Occupational Therapy Order: Evaluate and Treat, Improve ADL, Gross motor coordination, Fine motor coordination Home Health Nursing Order: Medical education Signs/symptoms of disease process Medication education-adverse effect Nursing assessment with vital signs Home Health Aide Order: To Assist In: general cargo clerk and meal prep I have seen patient Leno Jeter on 08/08/17. My clinical findings support the need for the requested home health care services because: Ltd mobility - disease progression Deconditioned w/ increased weakness Limited ability to care for self High risk of falls I certify that my clinical findings support that this patient is homebound because: Post-op weakness Unsteady gait/balance Unsafe to leave home unassisted Need for psychosocial assistance Poor cardiac reserve Gonzalo Bolaños MD R1 Aug 08, 2017 11:05
--- NOTE | 2017-08-08 16:26 | HHI.DCPOC ---
Discharge Care Plan Diagnosis: (1) Sinus bradycardia, persistent (2) Post-polio syndrome (3) Pacemaker Goals to Promote Your Health * To prevent worsening of your condition and complications, please take medications as prescribed. Report to the ED if you experience acute shortness of breath or have a fainting spell. * To maintain your health at the optimal level, please work with physical and occupational therapy while in the senior living facility. Please set up an appointment with the Prepress Proofer and a Primary Care Provider within 1 week. Directions to Meet Your Goals Take your medications as prescribed Follow your dietary instruction Follow activity as directed Keep your appointments as scheduled Take your immunizations and boosters as scheduled If your symptoms worsen call your PCP, if no PCP go to Urgent Care Center or Emergency Room Smoking is Dangerous to Your Health. Avoid second hand smoke Call the 24-hour hour crisis hotline for domestic abuse at Gonzalo Bolaños MD R1 Aug 08, 2017 16:26
[2017-08-09] VITALS (9 sets, daily range): BP systolic 109–128; BP diastolic 65–83; PULSE 58–84; RESP 17–19; TEMP 97.7–99.2; O2SAT 92–94
[2017-08-09] MEDS ORDERED: AMLO5 PO (06:38)
[2017-08-09] MEDS ORDERED: METO25TA3 PO (06:38)
[2017-08-09] MEDS ORDERED: MENTHOL LOZENGE BUCCAL PRN (08:45)
[2017-08-09] MEDS: DOCUSATE SODIUM 50 MG/SENNA 8.6 MG TAB PO SCH (09:01)
[2017-08-09] MEDS: SODIUM CHLORIDE 0.9% FLUSH 10 ML FLUSH IV FLUSH SCH (09:01)
[2017-08-09] MEDS: amLODIPine BESYLATE 5 MG TAB PO SCH (09:01)
[2017-08-09] MEDS: METOPROLOL TARTRATE 25 MG TAB PO SCH (09:01)
[2017-08-09] MEDS: PRAVASTATIN SOD 40 MG TAB PO SCH (09:01)
[2017-08-09] MEDS: ENOXAPARIN SODIUM 40 MG/0.4 ML SYRINGE SQ SCH (09:02)
[2017-08-09] MEDS: SODIUM CHLOR 0.9% 1000 ML INJ 1,000 ML IV SCH ×2 (10:03→14:00)
[2017-08-09] MEDS: NYSTAT/DIPHENHY/LIDO MOUTHWASH (Adult) 120ML SWISH-SWAL SCH ×2 (11:06→12:59)
--- NOTE | 2017-08-09 11:48 | HHI.FPPN ---
Subjective Remarks Mr Jeter had no acute events overnight. He slept well but has a sore throat this morning. We explained that is working to place him in a SNF and he is comfortable with that plan. He wants to work with PT/OT. Denies CP, SOB, N/V/D, and DVT pain. Objective Vitals Vital Signs Date Time Temp Pulse Resp B/P (MAP) Pulse Ox O2 Delivery O2 Flow Rate FiO2 08/09/17 11:07 60 19 109/65 (80) 93 08/09/17 08:16 84 17 123/79 (94) 92 08/09/17 06:05 71 08/09/17 04:53 99.2 76 128/81 (97) 94 08/09/17 04:00 60 08/09/17 03:00 60 08/09/17 02:00 60 08/09/17 01:00 58 08/09/17 00:00 58 08/09/17 00:00 97.7 76 123/83 (96) 94 08/08/17 23:00 60 08/08/17 22:00 58 08/08/17 21:00 84 08/08/17 20:00 72 08/08/17 20:00 97.2 81 143/71 (95) 96 08/08/17 19:00 82 08/08/17 17:25 79 18 132/83 (99) 95 I/O 08/08/17 08/08/17 08/08/17 08/09/17 08/09/17 08/09/17 07:00 15:00 23:00 07:00 15:00 23:00 Intake Total 360 ml 240 ml 240 ml Output Total 350 ml 400 ml 525 ml Balance 10 ml -160 ml -285 ml Intake Oral 360 ml 240 ml 240 ml Output Urine Total 350 ml 400 ml 525 ml # Bowel Movements 1 Result Diagram: 08/08/1762708/08/17627 Objective Remarks CONSTITUTIONAL/GEN: normally nourished elderly male in NAD lying in bed. EYES: conjunctiva normal, PERRLA, EOMI. ENT: Mouth and pharynx normal without exudate. Upper denture. No upper lip fasciculations as on presentation. NECK: No palpable lymphadenopathy, range of motion is normal. No meningeal signs. LUNGS: clear to auscultation bilaterally, respiratory effort is normal. No increased WOB; no wheezing or rhonchi. CARDIOVASCULAR: RRR with no murmur, rub or gallop; pacemaker set at 60 bpm GI/ABD: soft without masses, without organomegaly. NEURO: Noted weakness of the left upper extremity and right lower extremity. No limb pain today. SKIN: color normal, no rashes noted. No lesions. Surgical site from pacemaker placement over left upper chest c/d/i. HEME/LYMPH: no bruising, petechia or significant adenopathy MUSC: Back is normal in appearance. moves all extremities spontaneously. PSYCH/MENTAL STATUS: Alert and oriented x 3. Procedures Pacemaker placement 08/07/17: The pacemaker is a Medtronic model A2DR01, serial number [id number]. This is the Nicolasa Kaplan device. The atrial lead is a Medtronic model 476, length 45 cm, serial number [id number], with a P-wave of 1.9 mV, slew of 0.5 volts per second, resistance 817 ohms and a threshold of 1.2 volts. The ventricular lead is a Medtronic model 4076, length 52 cm, serial number [id number], with an R-wave of 5.6 mV, slew rate of 0.3 volts per second, resistance 1290 ohms and a threshold of 0.6 volts. Medications and IVs Current Medications Medications (Trade) Dose Ordered Sig/Aubrey Route Start Time Stop Time Status Last Admin Sodium Chloride 1,000 ml @ 70 mls/hr [id number] IV 08/05/17 20:15 08/07/17 00:51 (NS Flush) 2 ml UNSCH PRN IV FLUSH 08/05/17 21:30 (NS Flush) 2 ml BID IV FLUSH 08/06/17 09:00 08/09/17 09:01 (Zofran Inj) 4 mg Q6H PRN IVP 08/05/17 22:45 (Lovenox Inj) 40 mg DAILY SQ 08/06/17 09:00 08/09/17 09:02 (Tylenol) 650 mg Q6H PRN PO 08/05/17 22:45 08/07/17 21:02 ([place] 5-325 Mg) 1 tab Q4H PRN PO 08/05/17 22:45 ([place] 7.5-325 Mg) 1 tab Q4H PRN PO 08/05/17 22:45 08/08/17 20:42 (Morphine Inj) 4 mg Q3H PRN IV PUSH 08/05/17 22:45 08/07/17 12:24 (Narcan Inj) 0.4 mg UNSCH PRN IV PUSH 08/05/17 22:45 (Bridgette-Colace) 1 tab BID PO 08/06/17 09:00 08/09/17 09:01 (Milk Of Magnesia Liq) 30 ml Q12H PRN PO 08/05/17 22:45 (Senokot) 17.2 mg Q12H PRN PO 08/05/17 22:45 (Dulcolax Supp) 10 mg DAILY PRN RECTAL 08/05/17 22:45 (Lactulose Liq) 30 ml DAILY PRN PO 08/05/17 22:45 (Antivert) 25 mg BID PRN PO 08/05/17 22:45 (Pravachol) 40 mg DAILY PO 08/06/17 09:00 08/09/17 09:01 Sodium Chloride 1,000 ml @ 100 mls/hr Q10H IV 08/07/17 02:00 Cefazolin Sodium/ Dextrose 50 ml @ 100 mls/hr COMMUNITY SERVICE AIDE IV 08/07/17 07:15 08/10/17 07:14 Vancomycin HCl 1000 mg/Sodium Chloride 250 ml @ 250 mls/hr COMMUNITY SERVICE AIDE IV 08/07/17 07:15 08/11/17 07:14 (Betadine 5% Antisepsis Kit) 1 applic COMMUNITY SERVICE AIDE EACH NARE 08/07/17 07:15 08/11/17 07:14 (Bactroban Nasal 2% Oint) 1 applic COMMUNITY SERVICE AIDE NASAL 08/07/17 07:15 08/11/17 07:14 (Chlorhexidine 2% Cloth) 3 pack COMMUNITY SERVICE AIDE TOP 08/07/17 07:15 08/11/17 07:14 (Bacitracin Oint Packet) 0.9 gm UNSCH PRN TOP 08/07/17 11:00 (Lopressor) 25 mg Q12HR PO 08/07/17 12:30 08/09/17 09:01 (Norvasc) 5 mg DAILY PO 08/07/17 12:30 08/09/17 09:01 (Magic Mouthwash Adult Liq) 5 ml QID SWISH-SWAL 08/09/17 11:00 08/09/17 12:59 ([place] Fito) 1 lozenge UNSCH PRN BUCCAL 08/09/17 08:45 Urinary Catheter: No Vascular Central Line Catheter: No A/P Assessment and Plan Mr. Jeter is a 72yo WM with a PMHx of post-polio syndrome and HTN presenting to the ED with transient left-sided numbness and residual left arm weakness. Cardiac monitoring revealed consistently bradycardic rhythm in the 40s with multiple sinus pauses. Cardiology was consulted and consented patient for placement of a pacemaker which was done on 08/07/17. He is POD#2, stable and benign exam. D/w Dr Abraham Discharge Planning Anticipate discharge in 1-2 days pending CM placement in SNF. Cardiology has signed off. Problem List: (1) Sinus bradycardia, persistent ICD Codes: R00.1 - Bradycardia, unspecified Plan: Per cardiology recommendations, patient is not to take atenolol Echo performed on 08/06/17 shows low normal left ventricular systolic function with EF of 60% Pacemaker placed on 08/07/2017--POD#2 -Stable; pt feels less fatigued and more energetic; pacer set at [address] Shepard (2) Left arm weakness ICD Codes: R29.898 - Other symptoms and signs involving the musculoskeletal system Status: Acute Plan: Appears that the symptoms have a cervical origin due to associated neck pain. Differential diagnosis includes cervical radiculopathy vs worsening post- polio syndrome vs TIA * Head CT w/o showed no acute intracranial abnormality * Brain MRI benign * Cervical MRI w/o contrast showed degenerative arthritis and degenerative disc disease with broad based bulging discs in multiple areas * Patient may need neurology/neurosurgery referral focus is currently on bradycardia so will need to follow-up as an outpatient * OT consulted to assist with therapy and equipment needs for discharge * Neuro checks * PT/OT in SNF upon discharge (3) Post-polio syndrome ICD Codes: G14 - Postpolio syndrome Status: Chronic Plan: Patient has chronic weakness in left arm and right leg Physical therapy recommends home with home health PT and a wheeled walker (4) Hyperlipemia ICD Codes: E78.5 - Hyperlipidemia, unspecified Status: Chronic Plan: * Continue home medication Pravastatin 40mg PO once daily (5) Hypertension ICD Codes: I10 - Essential (primary) hypertension Status: Chronic Plan: HELD at home medication of Atenolol 25mg po qD to allow for permissive HTN and to help ameliorate bradycardia -Per Dr Shepard, Cardiology, stopping atenolol -Started Metoprolol tartrate 25mg q12h and Amlodipine 5mg daily and will continue upon DC -BP stable in 120s/70s on new regimen, s/p pacemaker placement (6) Sore throat in the morning ICD Codes: J02.9 - Acute pharyngitis, unspecified Status: Acute Plan: Woke up with sore throat this morning; no s/s of exudate -[place] throat lozenges PRN -Magic mouthwash q6h swish and swallow (7) FEN Status: Acute Plan: Fluids: tolerating PO Electrolytes: monitor and replete as needed Nutrition: heart-healthy diet DVT Prophylaxis: Early ambulation. Lovenox 40mg subQ q24hr GI Prophylaxis: not indicated at this time Problem Qualifiers (1) Hypertension: Qualified Codes: I10 - Essential (primary) hypertension Gonazlo Bolaños MD R1 Aug 09, 2017 11:48
--- NOTE | 2017-08-11 21:31 | HHI.DS ---
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 This is the [employer]Scan device. The atrial lead is a Medtronic model 476, length 45 cm, serial number [id number], with a P-wave of 1.9 mV, slew of 0.5 volts per second, resistance 817 ohms and a threshold of 1.2 volts. The ventricular lead is a Medtronic model 4076, length 52 cm, serial number [id number], with an R-wave of 5.6 mV, slew rate of 0.3 volts per second, resistance 1290 ohms and a threshold of 0.6 volts. Brief History Mr. Jeter is a 72yo WM with a PMH of post-polio syndrome presenting to the ED with transient left-sided numbness. He states that he arrived in [place] today after driving from [place] 2 days ago with a stop in [place], for his mother's on yesterday. He subsequently drove to the drifting and sat in his car. He turned his head sharply and felt an immediate pain in his neck. He described the pain as a 5 out of 10, feeling like a "pinched nerve" in the left side of his neck with no radiation, nothing made it worse, felt better with time. He said after the pain in his neck started his whole left side went numb. Eventually the feeling came back in his left leg, but he still feels sore in his left arm with some residual weakness that is greater than his baseline weakness. He remembers feeling tired during this episode which lasted for 45 [address] He [address] to the hospital once it was over. He has a history of polio when he was younger. It affected his muscles in his left arm and right leg which causes weakness. He was diagnosed with post polio syndrome 2 years ago. He states that he feels numbness sometimes, but not always. No tingling. States that he has never experienced anything like this before. CBC/BMP: 08/08/17 0628 08/08/17 0628 Imaging Last Impressions Chest X-Ray 08/07/17 0000 Signed Impressions: Service Date/Time: Monday, August 07, 2017 12:15 - CONCLUSION: No pneumothorax is identified following pacemaker placement. Carroll Iverson MD Brain MRI 08/06/17 0353 Signed Impressions: Service Date/Time: Sunday, August 06, 2017 09:32 - CONCLUSION: Mild benign-appearing white matter disease. No acute findings Carroll Jimenez MD Cervical Spine MRI 08/06/17 0000 Signed Impressions: Service Date/Time: Sunday, August 06, 2017 09:32 - CONCLUSION: 1. Primary bony degenerative changes, disc degeneration and disc space narrowing throughout the cervical spine. 2. There is broad-based and central bulging bulging at multiple levels. Michael Paulino MD Head CT 08/05/17 1805 Signed Impressions: Service Date/Time: Saturday, August 05, 2017 18:42 - CONCLUSION: No acute intracranial abnormality is identified. Carroll Iverson MD PE at Discharge CONSTITUTIONAL/GEN: normally nourished elderly male in NAD lying in bed. EYES: conjunctiva normal, PERRLA, EOMI. ENT: Mouth and pharynx normal without exudate. Upper denture. No upper lip fasciculations as on presentation. NECK: No palpable lymphadenopathy, range of motion is normal. No meningeal signs. LUNGS: clear to auscultation bilaterally, respiratory effort is normal. No increased WOB; no wheezing or rhonchi. CARDIOVASCULAR: RRR with no murmur, rub or gallop; left upper chest shows outline of pacemaker which has been set at 60 bpm GI/ABD: soft without masses, without organomegaly. NEURO: Noted weakness of the left upper extremity and right lower extremity. No limb pain today. SKIN: color normal, no rashes noted. No lesions. Surgical site from pacemaker placement over left upper chest c/d/i. HEME/LYMPH: no bruising, petechia or significant adenopathy MUSC: Back is normal in appearance. moves all extremities spontaneously. PSYCH/MENTAL STATUS: Alert and oriented x 3. Hospital Course [place] from [place] with plans to relocate here. Pt has post-polio syndrome with some weakness in left leg at baseline. Initial head CT noted no acute disease process, ruling out CVA. 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 Pt's baseline HR was in low 40s supported by ECG showing sinus bradycardia, and the pt was placed on telemetry. By day 2, the first sinus pauses were noted. ECHO showed low normal systolic function with EF at 60%, no wall abnormalities noted , and trace tricuspid regurgitation. Cardiology was consulted and pt's home atenolol was held as the possible culprit for the bradycardia; however, after more than 24 hours following the last atenolol dose, sinus pauses up to 3 seconds were noted, and HR dipped into the 30s and 20s overnight. Dr Shepard, Cardiology, placed a pacemaker on 11 which corrected the bradycardia and the pt's fatigue. Imaging following the procedure showed no evidence of pneumothorax. Pt was prescribed Metoprolol tartrate 25mg BID and Amlodipine 5mg a day following surgery to manage his HTN. POD#1, the pt had more stamina, upper lip fasciculations disappeared, and he appeared more alert; he was given an incentive spirometer to guard against atelectasis. Pt admitted at that time that he did not feel strong enough to undertake the trip home, and PT/OT agreed he needed some time to rehabilitate at a SNF. At discharge, pt was stable and improving, VSS with BP well controlled, labs were within normal limits, and physical exam was benign. CM worked to place him and he was discharged 08/09. Pt Condition on Discharge: Stable Discharge Disposition: Discharge to SNF Discharge Instructions DIET: Follow Instructions for: Heart Healthy Diet Activities you can perform: Weight Bearing as Calli Follow up Referrals: Cardiology with Solis Shepard MD PCP Follow-up - 1 Week with Gonzalo Bolaños MD R1 New Medications: Amlodipine (Norvasc) 5 Mg Tab 5 MG PO DAILY, #30 TAB Metoprolol Tartrate (Metoprolol Tartrate) 25 Mg Tab 25 MG PO Q12HR, #60 TAB Continued Medications: Folic Acid (Folic Acid) 0.4 Mg Tab 400 MCG PO DAILY for Nutritional Supplement, TAB 0 Refills Meclizine (Meclizine) 25 Mg Tab 25 MG PO DIRECTED PRN for VERTIGO, TAB 0 Refills Pravastatin (Pravastatin) 40 Mg Tab 40 MG PO DAILY for Cholesterol Management, #30 TAB 0 Refills Thiamine (Vitamin B-1) 100 Mg Tab 100 MG PO DAILY for Nutritional Supplement, TAB 0 Refills Discontinued Medications: Atenolol (Atenolol) 25 Mg Tab 25 MG PO DAILY for Blood Pressure Management, #30 TAB Gonzalo Bolaños MD R1 Aug 11, 2017 21:31
== END 2017-08-09 15:52 ==
LOC: NEPC 17:29 → NEDA 21:22 → NEPFCDU 23:27 → HCIS 08-07 08:38
PROVIDERS: ADMIT Family Medicine; ATTEND Family Medicine
DX: I49.5 Sick sinus syndrome (principal); I44.0 Atrioventricular block, first degree; J98.11 Atelectasis; I10 Essential (primary) hypertension; I25.2 Old myocardial infarction; G14 Postpolio syndrome; R20.0 Anesthesia of skin; R42 Dizziness and giddiness; M54.2 Cervicalgia; E78.5 Hyperlipidemia, unspecified; R29.898 Other symptoms and signs involving the musculoskeletal system; R29.818 Other symptoms and signs involving the nervous system; Z82.49 Family history of ischemic heart disease and other diseases of the circulatory system; Z87.891 Personal history of nicotine dependence
CPT/HCPCS: 00530; 33208; 70450; 70551; 71010; 72141; 80048; 80053; 81001; 82550; 84484; 85025; 85027; 85610; 93005; 93306; 96361; 96374; 97110; 97116; 97163; 97166; 97530; 97535; 99285; C1785; C1898; G0378; G8987; G8988; J0690; J1650; J2250; J2270; J3010; J3370; J7030; Q9967